=== PATIENT | female | born 1965 | race Caucasian/White ===

== ENCOUNTER 2020-07-23 14:27 | Outpatient (CLI) | payer OTHER, SELFPAY ==
--- NOTE | 2020-07-23 15:00 | MM_ITS ---
WS: [id number] BILATERAL DIGITAL SCREENING MAMMOGRAPHY WITH CAD CLINICAL INFORMATION: screening mammo HISTORY: Screening mammogram. No current complaints. COMPARISON: TECHNIQUE: Bilateral CC and MLO views. FINDINGS: The breasts are composed of heterogeneous fibroglandular density tissue, which can limit the detectio n of small underlying mass lesions. No suspicious mass, asymmetry, calcifications, or architectural d istortion. No evidence of malignancy. MM/[place] [id number] IMPRESSION: BI-RADS: 1-Negative FOLLOW UP: 1 Year Follow-up Recommend return to annual screening mammography.
== END 2020-07-23 14:28 | disposition home or self-care (01) ==
PROVIDERS: PCP Nurse Practitioner; Visit Provider Nurse Practitioner
DX: Z12.31 Encounter for screening mammogram for malignant neoplasm of breast (principal)
CPT/HCPCS: 77067

== ENCOUNTER → 2021-03-24 07:38 | Outpatient (BNVA) | payer SELFPAY | PROVIDERS: PCP Dermatology; Visit Provider Dermatology | DX: Z01.89 Encounter for other specified special examinations (principal) ==

== ENCOUNTER → 2021-09-15 07:56 | Outpatient (BNVA) | payer SELFPAY | PROVIDERS: PCP Dermatology; Visit Provider Dermatology | DX: Z01.89 Encounter for other specified special examinations (principal) | CPT/HCPCS: 99398 ==

== ENCOUNTER 2021-09-18 08:40 | Outpatient (CLI) | payer OTHER, SELFPAY ==
--- NOTE | 2021-09-18 09:00 | MM_ITS ---
WS: [id number] Bilateral screening digital mammogram, 09/18/2021 Clinical Data: Z12.31 - Encounter for screening mammogram for malignant ... Comparison: 07/23/2020, 08/31/2019, 08/18/2018, 08/12/2017, 08/12/2016, 07/25/2015, 09/06/2014, 2012, 05/08/2012, 05/05/2011, 06/18/2010, 05/16/2009. Findings: The breast parenchymal pattern shows fibroglandular tissue No spiculated masses or clustered calcific ations are seen. There are no secondary signs of carcinoma. MM/[place] [id number] Impression: 1. Negative bilateral mammogram unchanged. 2. Recommend annual screening mammograms. BIRADS: 1-Negative FOLLOW UP: 1 Year Follow-up The CAD security checker was used.
== END 2021-09-18 08:41 | disposition home or self-care (01) ==
LOC: RADSHAW 08:42
PROVIDERS: PCP Nurse Practitioner; Visit Provider Nurse Practitioner
DX: Z12.31 Encounter for screening mammogram for malignant neoplasm of breast (principal)
CPT/HCPCS: 77067

== ENCOUNTER 2021-11-20 07:25 | Outpatient (CLI) | payer OTHER, SELFPAY ==
--- NOTE | 2021-11-20 07:15 | US_ITS ---
WS: [id number] RIGHT UPPER QUADRANT ULTRASOUND HISTORY: R74.8 - Abnormal levels of other serum enzymes COMPARISON: None available. Liver: 14.9 cm in length. Liver is normal size. Very mild diffuse coarse echotexture. Surface of the liver is very mildly nodular. No mass or bile duct dilatation. Portal Vein: Normal hepatopetal flow with monophasic waveform. Gallbladder: Normally distended gallbladder with no stones or wall thickening. CBD: 0.4 cm Pancreas: Normal size and echogenicity. Right kidney: 9.4 cm in length. Normal size and echogenicity. No hydronephrosis or mass. Aorta and IVC: Unremarkable abdominal aorta and IVC. No ascites. US/US liver [id number] IMPRESSION: 1. Normal gallbladder. 2. Normal size liver with suspected mild early changes of cirrhosis. 3. No bile duct dilatation.
== END 2021-11-20 07:26 | disposition home or self-care (01) ==
LOC: RAD 07:32
PROVIDERS: PCP Nurse Practitioner; Visit Provider Nurse Practitioner
DX: R74.8 Abnormal levels of other serum enzymes (principal)
CPT/HCPCS: 76705

== ENCOUNTER → 2021-12-07 09:44 | Outpatient (BNVA) | payer OTHER, SELFPAY | PROVIDERS: PCP Nurse Practitioner; Visit Provider Nurse Practitioner | DX: Z20.822 Contact with and (suspected) exposure to COVID-19 (principal) | CPT/HCPCS: 87635 ==

== ENCOUNTER → 2022-03-16 07:43 | Outpatient (BNVA) | payer OTHER, SELFPAY | PROVIDERS: PCP Nurse Practitioner; Visit Provider Dermatology | DX: Z01.89 Encounter for other specified special examinations (principal) ==

== ENCOUNTER → 2022-03-18 13:44 | Outpatient (BNVA) | payer OTHER, SELFPAY | PROVIDERS: PCP Nurse Practitioner; Visit Provider Nurse Practitioner | DX: M17.11 Unilateral primary osteoarthritis, right knee (principal); M25.561 Pain in right knee | CPT/HCPCS: 73562 ==

== ENCOUNTER → 2022-06-15 08:17 | Outpatient (BNVA) | payer SELFPAY | PROVIDERS: PCP Nurse Practitioner; Visit Provider Dermatology | DX: Z01.89 Encounter for other specified special examinations (principal) ==

== ENCOUNTER → 2022-09-09 09:03 | Outpatient (BNVA) | payer OTHER, SELFPAY | PROVIDERS: PCP Nurse Practitioner; Visit Provider Nurse Practitioner | DX: E11.65 Type 2 diabetes mellitus with hyperglycemia (principal); Z79.4 Long term (current) use of insulin | CPT/HCPCS: 81000 ==

== ENCOUNTER → 2022-09-14 08:05 | Outpatient (BNVA) | payer SELFPAY | PROVIDERS: PCP Nurse Practitioner; Referring Provider Dermatology; Visit Provider Dermatology | DX: Z01.89 Encounter for other specified special examinations (principal) ==

== ENCOUNTER 2022-09-24 09:47 | Outpatient (CLI) | payer OTHER, SELFPAY ==
--- NOTE | 2022-09-24 10:05 | MM_ITS ---
WS: [id number] BILATERAL SCREENING DIGITAL TOMOSYNTHESIS MAMMOGRAM WITH CAD HISTORY: Z12.39 - Encounter for other screening for malignant neoplasm... COMPARISON: 09/18/2021, 07/23/2020 and 08/31/2019 Bilateral CC and MLO views with tomosynthesis and synthetic mammography submitted. Computer aided det ection analyzed. Breast composition: There are scattered areas of fibroglandular density. No suspicious masses, microc alcifications or architectural distortion. 6 mm stable nodule posterior to the LEFT nipple seen best on the MLO projection. MM/[place] [id number] IMPRESSION: BI-RADS: 2-Benign FOLLOW UP: 1 Year Follow-up
== END 2022-09-24 09:48 | disposition home or self-care (01) ==
LOC: RAD 09:48
PROVIDERS: PCP Nurse Practitioner; Visit Provider Nurse Practitioner
DX: Z12.31 Encounter for screening mammogram for malignant neoplasm of breast (principal)
CPT/HCPCS: 77063; 77067

== ENCOUNTER → 2022-12-14 07:53 | Outpatient (BNVA) | payer OTHER, SELFPAY | PROVIDERS: PCP Nurse Practitioner; Visit Provider Dermatology | DX: Z01.89 Encounter for other specified special examinations (principal) ==

== ENCOUNTER → 2023-03-08 14:58 | Outpatient (BNVA) | payer OTHER, SELFPAY | PROVIDERS: PCP Nurse Practitioner; Visit Provider Nurse Practitioner | DX: M25.531 Pain in right wrist (principal) | CPT/HCPCS: 73110 ==

== ENCOUNTER → 2023-03-15 09:47 | Outpatient (BNVA) | payer SELFPAY | PROVIDERS: PCP Nurse Practitioner; Visit Provider Nurse Practitioner | DX: Z01.89 Encounter for other specified special examinations (principal) ==

== ENCOUNTER → 2023-11-23 07:53 | Outpatient (BNVA) | payer OTHER, SELFPAY | PROVIDERS: PCP Nurse Practitioner; Visit Provider Nurse Practitioner | DX: Z13.6 Encounter for screening for cardiovascular disorders (principal) | CPT/HCPCS: 80061; 82947; 83036 ==

== ENCOUNTER → 2023-12-05 08:30 | Outpatient (BNVA) | payer OTHER, SELFPAY | PROVIDERS: PCP Nurse Practitioner; Visit Provider Nurse Practitioner | DX: M75.31 Calcific tendinitis of right shoulder (principal); M25.511 Pain in right shoulder | CPT/HCPCS: 73030 ==

== ENCOUNTER → 2024-10-15 08:29 | Outpatient (BNVA) | payer SELFPAY | PROVIDERS: PCP Nurse Practitioner; Visit Provider Nurse Practitioner | DX: R05.9 Cough, unspecified (principal) | CPT/HCPCS: 71046 ==

== ENCOUNTER → 2025-07-11 08:23 | Outpatient (BNVA) | payer SELFPAY | PROVIDERS: PCP Nurse Practitioner; Visit Provider Nurse Practitioner | DX: L98.8 Other specified disorders of the skin and subcutaneous tissue (principal) | CPT/HCPCS: 88305 ==

== ENCOUNTER 2025-07-19 17:35 | Inpatient (IN) | payer OTHER, SELFPAY ==
[2025-07-19] VITALS (18 sets, daily range): BP systolic 75–126; BP diastolic 46–78; PULSE 91–136; RESP 17–34; TEMP 36.9–38.6; O2SAT 92–94; BMI 27.1
--- NOTE | 2025-07-19 17:53 | XRR_ITS ---
PROCEDURE INFORMATION: Exam: XR Chest Exam date and time: 07/19/2025 5:54 PM Age: 60 years old Clinical indication: Fever and other: Nausea and vomiting; Additional info: Fever, n/v TECHNIQUE: Imaging protocol: Radiologic exam of the chest. Views: 1 view. COMPARISON: CR XR chest 2V* [id number] 10/15/2024 8:27 AM FINDINGS: Lungs: Unremarkable. No consolidation. Pleural spaces: Unremarkable. No pleural effusion. No pneumothorax. Heart/Mediastinum: Unremarkable. No cardiomegaly. Bones/joints: Unremarkable. XR/XR chest 1V portable [id number] IMPRESSION: No acute findings.
--- NOTE | 2025-07-19 18:11 | W.ED.NAVMDI ---
Documented by User: ALBERTINA Dye 07/19/25 20:36 HPI - Nausea/Vomiting/Diarrhea General: Chief complaint: Nausea/Vomiting/Diarrhea Stated complaint: Fever N/V Time Seen by Provider: 07/19/25 17:52 Source: patient Mode of arrival: ambulatory Limitations: no limitations History of Present Illness: This patient is a 60-year-old female who presents the emergency department for high fevers beginning yesterday. Reported temperature at home of 105, associated with nausea and vomiting. She arrives tachycardic, febrile, and hypotensive and is a sepsis alert. She has been complaining of fatigue, but has no chest pain or shortness of breath. No abdominal pain or diarrhea. No pertinent past medical history other than being diabetic. Also of note she has developed a rash diffusely, however it is not painful or itchy. Denies any new medications. Denies any urinary symptoms. No coughing. No reported sick contact exposure. No recent tick bites. MD elicited complaint: nausea, vomiting and other (Fever) Onset (ago): day(s) Associated nausea: Yes Associated abdominal pain: No Associated symtoms: Reports fatigue, malaise and nausea; Denies change in vision, chest pain, dysuria, headache(s) or palpitations Related Data Home Medications ?Medication ?Instructions ?Recorded ?Confirmed aspirin 325 mg tablet 325 mg PO DAILY 02/01/22 07/10/25 magnesium 250 mg tablet 250 mg PO BID 03/17/22 07/10/25 valerian 100 mg tablet 100 mg PO DAILY 04/24/25 07/10/25 Previous Rx's ?Medication ?Instructions ?Recorded mupirocin 2 % topical ointment 1 applic topical BID #22 grams 01/27/23 albuterol sulfate 2.5 mg/3 mL 2.5 mg (3 mL) inhalation Q4H PRN 10/15/24 (0.083 %) solution for nebulization shortness of breath or wheezing #75 mL nebulizers #1 ea 10/15/24 metformin 500 mg tablet,extended 500 mg PO DAILY #90 tabs 02/14/25 release 24 hr tirzepatide 5 mg/0.5 mL 5 mg (0.5 mL) SUBCUT .weekly #2 mL 02/14/25 subcutaneous pen injector (Mounjaro) tizanidine 4 mg tablet (Zanaflex) 2 mg (1/2 x 4 mg) PO BID PRN 05/14/25 muscle spasticity #90 tabs Allergies Allergy/AdvReac Type Severity Reaction Status Date / Time No Known Allergies Allergy Verified 07/10/25 15:41 Review of Systems General: Reports: 10 or more systems reviewed and unremarkable except in HPI and below Const: Reports: fever(s), fatigue and malaise; Denies: chills Eyes: Denies: change in vision ENMT: Denies: throat pain, ear or mastoid pain or nasal discharge Card: Denies: chest pain, palpitations, swelling of feet/ankles or lightheadedness Resp: Denies: dyspnea, productive cough or wheezing GI: Reports: nausea and vomiting; Denies: abdominal pain or diarrhea : Denies: flank pain, difficulty voiding, dysuria or urinary frequency Musc: Denies: neck pain, back pain or joint pain Skin/Breast: Denies: rash Neuro: Denies: headache(s), numbness in extremities or weakness in extremities PFSH ED PFSH: Medical History Type 2 diabetes mellitus with hyperglycemia, without long-term current use of insulin BMI 29.0-29.9,adult Surgical History No pertinent past surgical history Family History Mother Diabetes Hypertension Stroke Sister Diabetes Brother Diabetes Father Dementia Hypertension Denies family history of Cancer Social History Smoking and tobacco/nicotine status: never used tobacco/nicotine Second hand smoke exposure: No Alcohol intake: never Substance/Drug Use: never Adopted: No Caregiver/support person: No Lives independently: Yes Household members: family Housing: House Marital status: Single Number of children: 0 Number of grandchildren: 0 service: No Current occupational status: employed Current occupation: [employer] Current occupational exposures/hazards: No Pets and animals: Yes Pets & animals: farm animals Sexually active: No Do you think of yourself as: Straight/Heterosexual Current gender identity: Female Physical Exam Const: COMMON NORMALS: patient oriented x3 and no limitations GENERAL APPEARANCE: cooperative ORIENTATION/CONSCIOUSNESS: Yes awake, Yes oriented to person, Yes oriented to place and Yes oriented to time OTHER: Lethargic, ill-appearing HENMT: COMMON NORMALS: normocephalic, atraumatic, hearing grossly normal bilaterally and moist oral mucous membranes HEAD & SCALP: normocephalic and atraumatic Eye: COMMON NORMALS: Equal, round and reactive pupils present, EOMs intact bilaterally and conjunctivae normal CONJUNCTIVA: Yes conjunctivae normal PUPIL: Yes Equal, round and reactive pupils present Neck/C-Spine: COMMON NORMALS: full ROM, supple and no JVD Resp: COMMON NORMALS: normal respiratory effort, No retractions, No use of accessory muscles and clear to auscultation bilaterally AUSCULTATION: clear to auscultation bilaterally OTHER: No respiratory distress Cardio: COMMON NORMALS: no JVD, regular rhythm, No clicks present (Cardio), No murmurs present (Cardio) and No rub (Cardio) RATE: tachycardic RHYTHM: regular rhythm GI: COMMON NORMALS: Normal to inspection, nondistended, normoactive bowel sounds present, Soft to palpation and non-tender AUSCULTATION: Yes normoactive bowel sounds PALPATION: Yes Soft to palpation RECTAL EXAM: deferred Extremity: COMMON NORMALS: normal to inspection, full ROM and capillary refill normal Neuro: COMMON NORMALS: patient oriented x3, moves all extremities, no focal motor deficits and no sensory deficits noted SENSORIUM/ORIENTATION: Yes oriented to person, Yes oriented to place and Yes oriented to time Skin: NARRATIVE SKIN EXAM: Mild diffuse erythematous rash Course Vital Signs: Vital signs: Vital Signs Temperature 98.4 F 07/19/25 19:00 Pulse Rate 108 H 07/19/25 21:42 Respiratory Rate 17 07/19/25 20:30 Blood Pressure 91/51 07/19/25 21:42 Pulse Oximetry 92 07/19/25 21:42 Oxygen Delivery Me thod Room Air 07/19/25 21:35 MDM - Nausea/Vomiting/Diarrhea Medical Decision Making This patient presented to the emergency department for septic alert, hypotensive, tachycardic and febrile. At home was feverish with chills, and associated nausea vomiting that seemingly started yesterday, where was noted that Tuesday she was feeling without complaint. She has a history of type 2 diabetes under control. She had no new urinary symptoms to report. She is started on septic fluid bolus and blood cultures obtained prior to administration of IV antibiotics. Mild leukocytosis, elevation in CRP and procalcitonin. Her x-ray is negative for any obvious focal infiltrate. COVID/viral swab negative. Her urinalysis shows signs of significant urinary tract infection, this is presenting as likely urosepsis. On exam she also had diffuse erythematous rash that has been worsening here in the ED, this was present prior to administration of Vanco. Blood pressure has remained soft despite IV fluids, I spoke to hospitalist, Dr. Gandara, who is excepted patient to ICU, the patient will also receive CT abdomen pelvis to rule out any obstructive uropathy or significant pyelonephritis. Patient has had no complaints of abdominal pain or back pain. Discussed patient's case in brief with Dr. Borrero here in the ED who will put in admit orders. Informed family of plan for admission, they agree and all other questions and concerns addressed. Lab Data 07/19/25 18:02 07/19/25 18:02 Radiology Impressions Chest X-Ray 07/19/25 17:53 IMPRESSION: No acute findings. Abdomen/Pelvis CT 07/19/25 20:13 IMPRESSION: 1. Mild mucosal thickening of the distal esophagus which is nonspecific but can be seen in esophagitis. 2. Moderate thickening of the gastric antrum which is nonspecific but can be seen in gastritis. Gastroenterology consultation should be considered. 3. Right adrenal lesion incompletely characterized on this examination measures 11 mm. To confirm adrenal adenoma, follow-up adrenal protocol CT or MRI is recommended. 4. Heterogeneously enhancing right adnexal cyst measures 2.0 cm series 5, image 78. Given the patient's age further evaluation with pelvic MRI or ultrasound could be considered. 5. Scattered bilateral pulmonary nodules measuring up to 5 mm in the left lower lobe series 5, image 5. Follow-up as per Fleischner criteria. Laboratory Results WBC 11.61 10^3/uL (3.29-11.43) H 07/19/25 18:02 RBC 5.39 10^6/uL (3.85-5.65) 07/19/25 18:02 Hgb 15.80 g/dL (11.27-16.99) 07/19/25 18:02 Hct 46.4 % (36-47) 07/19/25 18:02 MCV 86.1 fl (85-98) 07/19/25 18:02 MCH 29.3 pg (27-33) 07/19/25 18:02 MCHC 34.1 g/dL (30-55) 07/19/25 18:02 RDW 12.9 % (12.1-15.1) 07/19/25 18:02 Plt Count 122 10^3/cmm (157-399) L 07/19/25 18:02 MPV 9.5 fL (7.4-10.4) 07/19/25 18:02 Neut % (Auto) 93.9 % 07/19/25 18:02 Lymph % (Auto) 2.2 % 07/19/25 18:02 [place] % (Auto) 1.1 % 07/19/25 18:02 Eos % (Auto) 0.8 % 07/19/25 18:02 Baso % (Auto) 0.2 % 07/19/25 18:02 Neut # (Auto) 10.90 10^3/uL (1.8-7.7) H 07/19/25 18:02 Lymph # (Auto) 0.3 10^3/uL (0.8-4.8) L 07/19/25 18:02 [place] # (Auto) 0.1 10^3/uL (0.2-0.9) L 07/19/25 18:02 Eos # (Auto) 0.1 10^3/uL (0.0-0.8) 07/19/25 18:02 Baso # (Auto) 0.0 10^3/uL (0.0-0.1) 07/19/25 18:02 Nucleated RBC % (auto) 0 % 07/19/25 18:02 Nucleated RBCs # 0.0 /100WBC 07/19/25 18:02 PT 16.50 SECONDS (12.1-14.9) H 07/19/25 18:02 INR 1.25 (0.8-1.2) H 07/19/25 18:02 APTT 27.4 SECONDS (23.9-36.7) 07/19/25 18:02 Sodium 136 mmol/L (136-145) 07/19/25 18:02 Potassium 3.4 mmol/L (3.5-5.1) L 07/19/25 18:02 Chloride 98 mmol/L (98-107) 07/19/25 18:02 Carbon Dioxide 18 mmol/L (22-29) L 07/19/25 18:02 Anion Gap 23.4 (5-19) H 07/19/25 18:02 BUN 18 mg/dL (8-23) 07/19/25 18:02 Creatinine 1.2 mg/dL (0.5-0.9) H 07/19/25 18:02 GFR Calculation 45.7 mL/min (90-130) L 07/19/25 18: Glucose 184 mg/dL (65-115) H 07/19/25 18:02 Calculated Osmolality 289 mOsm/kg (285-295) 07/19/25 18:02 Lactic Acid Cancelled 07/19/25 18: Lactate 1.6 mmol/L (0.5-2.2) 07/19/25 19:33 Calcium 9.2 mg/dL (8.5-10.5) 07/19/25 18:02 Total Bilirubin 0.7 mg/dL (0.15-1.2) 07/19/25 18:02 AST 41 U/L (0-32) H 07/19/25 18:02 ALT 36 U/L (0-33) H 07/19/25 18:02 Alkaline Phosphatase 85 U/L (35-105) 07/19/25 18:02 C-Reactive Protein 187.0 mg/L (0.0-4.9) H 07/19/25 18:02 Total Protein 7.9 g/dL (6.6-8.7) 07/19/25 18:02 Albumin 4.1 g/dL (3.5-5.2) 07/19/25 18:02 Globulin 3.8 g/dL (1.3-4.6) 07/19/25 18:02 Procalcitonin 7.90 ng/mL (0-0.5) H 07/19/25 18:02 Urine Color Dark yellow (Yellow) A 07/19/25 18:58 Urine Appearance Turbid (CLEAR) A 07/19/25 18:58 Urine pH 5.5 (5-7) 07/19/25 18:58 Ur Specific [place] 1.034 (1.005-1.030) H 07/19/25 18:58 Urine Protein 2+ (Negative) A 07/19/25 18:58 Urine Glucose (UA) Negative (Normal) 07/19/25 18:58 Urine Ketones 4+ (Negative) 07/19/25 18:58 Urine Blood 1+ (Negative) A 07/19/25 18:58 Urine Nitrate Negative (Negative) 07/19/25 18:58 Urine Bilirubin 1+ (Negative) H 07/19/25 18:58 Urine Urobilinogen 1.0 mg/dL (Negative) 07/19/25 18:58 Ur Leukocyte Esterase 3+ (Negative) A 07/19/25 18:58 Urine RBC 11-20 /hpf (0-2) H 07/19/25 18:58 Urine WBC >100 /hpf (0-5) H 07/19/25 18:58 Ur Squamous Epith Cells 6-10 /hpf (0-5) 07/19/25 18:58 Amorphous Sediment Not Reportable 07/19/25 18:58 Urine Bacteria 3+ /hpf (NONE) H 07/19/25 18:58 Hyaline Casts 36.83 /lpf 07/19/25 18:58 Urine Mucus 2+ /hpf 07/19/25 18:58 Serum Ketones Negative (Negative) 07/19/25 18:02 Influenza A (PCR) Negative (Negative) 07/19/25 18:35 Influenza Type B (PCR) Negative (Negative) 07/19/25 18:35 RSV (PCR) Negative (Negative) 07/19/25 18:35 SARS-CoV-2 (PCR) Negative (Negative) 07/19/25 18:35 All radiology interpretation(s) finalized by discharge Discharge Plan Discharge Patient Disposition: Admitted As Inpatient Admit Provider: Jessica Gandara Clinical Impression: Sepsis, UTI (urinary tract infection) Condition: Stable Coding Level of Care Code ED Process Improvement Specialist for Radhag Fwd Documented by User: Chelsi Neff MD 07/19/25 22:16 HPI - Nausea/Vomiting/Diarrhea General: Chief complaint: Nausea/Vomiting/Diarrhea Stated complaint: Fever N/V Time Seen by Provider: 07/19/25 17:52 Related Data Home Medications ?Medication ?Instructions ?Recorded ?Confirmed aspirin 325 mg tablet 325 mg PO DAILY 02/01/22 07/10/25 magnesium 250 mg tablet 250 mg PO BID 03/17/22 07/10/25 valerian 100 mg tablet 100 mg PO DAILY 04/24/25 07/10/25 Previous Rx's ?Medication ?Instructions ?Recorded mupirocin 2 % topical ointment 1 applic topical BID #22 grams 01/27/23 albuterol sulfate 2.5 mg/3 mL 2.5 mg (3 mL) inhalation Q4H PRN 10/15/24 (0.083 %) solution for nebulization shortness of breath or wheezing #75 mL nebulizers #1 ea 10/15/24 metformin 500 mg tablet,extended 500 mg PO DAILY #90 tabs 02/14/25 release 24 hr tirzepatide 5 mg/0.5 mL 5 mg (0.5 mL) SUBCUT .weekly #2 mL 02/14/25 subcutaneous pen injector (Mounjaro) tizanidine 4 mg tablet (Zanaflex) 2 mg (1/2 x 4 mg) PO BID PRN 05/14/25 muscle spasticity #90 tabs Allergies Allergy/AdvReac Type Severity Reaction Status Date / Time No Known Allergies Allergy Verified 07/10/25 15:41 PFSH ED PFSH: Medical History Type 2 diabetes mellitus with hyperglycemia, without long-term current use of insulin BMI 29.0-29.9,adult Surgical History No pertinent past surgical history Family History Mother Diabetes Hypertension Stroke Sister Diabetes Brother Diabetes Father Dementia Hypertension Denies family history of Cancer Social History Smoking and tobacco/nicotine status: never used tobacco/nicotine Second hand smoke exposure: No Alcohol intake: never Substance/Drug Use: never Adopted: No Caregiver/support person: No Lives independently: Yes Household members: family Housing: House Marital status: Single Number of children: 0 Number of grandchildren: 0 service: No Current occupational status: employed Current occupation: [employer] Current occupational exposures/hazards: No Pets and animals: Yes Pets & animals: farm animals Sexually active: No Do you think of yourself as: Straight/Heterosexual Current gender identity: Female Course Vital Signs: Vital signs: Vital Signs Temperature 98.4 F 07/19/25 19:00 Pulse Rate 108 H 07/19/25 21:42 Respiratory Rate 17 07/19/25 20:30 Blood Pressure 91/51 07/19/25 21:42 Pulse Oximetry 92 07/19/25 21:42 Oxygen Delivery Me thod Room Air 07/19/25 21:35 MDM - Nausea/Vomiting/Diarrhea Medical Decision Making This patient presented to the emergency department for septic alert, hypotensive, tachycardic and febrile. At home was feverish with chills, and associated nausea vomiting that seemingly started yesterday, where was noted that Tuesday she was feeling without complaint. She has a history of type 2 diabetes under control. She had no new urinary symptoms to report. She is started on septic fluid bolus and blood cultures obtained prior to administration of IV antibiotics. Mild leukocytosis, elevation in CRP and procalcitonin. Her x-ray is negative for any obvious focal infiltrate. COVID/viral swab negative. Her urinalysis shows signs of significant urinary tract infection, this is presenting as likely urosepsis. On exam she also had diffuse erythematous rash that has been worsening here in the ED, this was present prior to administration of Vanco. Blood pressure has remained soft despite IV fluids, I spoke to hospitalist, Dr. Gandara, who is excepted patient to ICU, the patient will also receive CT abdomen pelvis to rule out any obstructive uropathy or significant pyelonephritis. Patient has had no complaints of abdominal pain or back pain. Discussed patient's case in brief with Dr. Borrero here in the ED who will put in admit orders. Informed family of plan for admission, they agree and all other questions and concerns addressed. I saw patient with above midlevel agree with his history and physical. Patient presented here with sepsis likely from urinary tract infection. She is given sepsis bolus along with IV antibiotics patient is admitted to ICU to the hospitalist. Imaging here showed no acute findings. Lab Data 07/19/25 18:02 07/19/25 18:02 Radiology Impressions Chest X-Ray 07/19/25 17:53 IMPRESSION: No acute findings. Abdomen/Pelvis CT 07/19/25 20:13 IMPRESSION: 1. Mild mucosal thickening of the distal esophagus which is nonspecific but can be seen in esophagitis. 2. Moderate thickening of the gastric antrum which is nonspecific but can be seen in gastritis. Gastroenterology consultation should be considered. 3. Right adrenal lesion incompletely characterized on this examination measures 11 mm. To confirm adrenal adenoma, follow-up adrenal protocol CT or MRI is recommended. 4. Heterogeneously enhancing right adnexal cyst measures 2.0 cm series 5, image 78. Given the patient's age further evaluation with pelvic MRI or ultrasound could be considered. 5. Scattered bilateral pulmonary nodules measuring up to 5 mm in the left lower lobe series 5, image 5. Follow-up as per Fleischner criteria. Laboratory Results WBC 11.61 10^3/uL (3.29-11.43) H 07/19/25 18:02 RBC 5.39 10^6/uL (3.85-5.65) 07/19/25 18:02 Hgb 15.80 g/dL (11.27-16.99) 07/19/25 18:02 Hct 46.4 % (36-47) 07/19/25 18:02 MCV 86.1 fl (85-98) 07/19/25 18:02 MCH 29.3 pg (27-33) 07/19/25 18:02 MCHC 34.1 g/dL (30-55) 07/19/25 18:02 RDW 12.9 % (12.1-15.1) 07/19/25 18:02 Plt Count 122 10^3/cmm (157-399) L 07/19/25 18:02 MPV 9.5 fL (7.4-10.4) 07/19/25 18:02 Neut % (Auto) 93.9 % 07/19/25 18:02 Lymph % (Auto) 2.2 % 07/19/25 18:02 [place] % (Auto) 1.1 % 07/19/25 18:02 Eos % (Auto) 0.8 % 07/19/25 18:02 Baso % (Auto) 0.2 % 07/19/25 18:02 Neut # (Auto) 10.90 10^3/uL (1.8-7.7) H 07/19/25 18:02 Lymph # (Auto) 0.3 10^3/uL (0.8-4.8) L 07/19/25 18:02 [place] # (Auto) 0.1 10^3/uL (0.2-0.9) L 07/19/25 18:02 Eos # (Auto) 0.1 10^3/uL (0.0-0.8) 07/19/25 18:02 Baso # (Auto) 0.0 10^3/uL (0.0-0.1) 07/19/25 18:02 Nucleated RBC % (auto) 0 % 07/19/25 18:02 Nucleated RBCs # 0.0 /100WBC 07/19/25 18:02 PT 16.50 SECONDS (12.1-14.9) H 07/19/25 18:02 INR 1.25 (0.8-1.2) H 07/19/25 18:02 APTT 27.4 SECONDS (23.9-36.7) 07/19/25 18:02 Sodium 136 mmol/L (136-145) 07/19/25 18:02 Potassium 3.4 mmol/L (3.5-5.1) L 07/19/25 18:02 Chloride 98 mmol/L (98-107) 07/19/25 18:02 Carbon Dioxide 18 mmol/L (22-29) L 07/19/25 18:02 Anion Gap 23.4 (5-19) H 07/19/25 18:02 BUN 18 mg/dL (8-23) 07/19/25 18:02 Creatinine 1.2 mg/dL (0.5-0.9) H 07/19/25 18:02 GFR Calculation 45.7 mL/min (90-130) L 07/19/25 18:02 Glucose 184 mg/dL (65-115) H 07/19/25 18:02 Calculated Osmolality 289 mOsm/kg (285-295) 07/19/25 18:02 Lactic Acid Cancelled 07/19/25 18:02 Lactate 1.6 mmol/L (0.5-2.2) 07/19/25 19:33 Calcium 9.2 mg/dL (8.5-10.5) 07/19/25 18:02 Total Bilirubin 0.7 mg/dL (0.15-1.2) 07/19/25 18:02 AST 41 U/L (0-32) H 07/19/25 18:02 ALT 36 U/L (0-33) H 07/19/25 18:02 Alkaline Phosphatase 85 U/L (35-105) 07/19/25 18:02 C-Reactive Protein 187.0 mg/L (0.0-4.9) H 07/19/25 18:02 Total Protein 7.9 g/dL (6.6-8.7) 07/19/25 18:02 Albumin 4.1 g/dL (3.5-5.2) 07/19/25 18:02 Globulin 3.8 g/dL (1.3-4.6) 07/19/25 18:02 Procalcitonin 7.90 ng/mL (0-0.5) H 07/19/25 18:02 Urine Color Dark yellow (Yellow) A 07/19/25 18:58 Urine Appearance Turbid (CLEAR) A 07/19/25 18:58 Urine pH 5.5 (5-7) 07/19/25 18:58 Ur Specific [place] 1.034 (1.005-1.030) H 07/19/25 18:58 Urine Protein 2+ (Negative) A 07/19/25 18:58 Urine Glucose (UA) Negative (Normal) 07/19/25 18:58 Urine Ketones 4+ (Negative) 07/19/25 18:58 Urine Blood 1+ (Negative) A 07/19/25 18:58 Urine Nitrate Negative (Negative) 07/19/25 18:58 Urine Bilirubin 1+ (Negative) H 07/19/25 18:58 Urine Urobilinogen 1.0 mg/dL (Negative) 07/19/25 18:58 Ur Leukocyte Esterase 3+ (Negative) A 07/19/25 18:58 Urine RBC 11-20 /hpf (0-2) H 07/19/25 18:58 Urine WBC >100 /hpf (0-5) H 07/19/25 18:58 Ur Squamous Epith Cells 6-10 /hpf (0-5) 07/19/25 18:58 Amorphous Sediment Not Reportable 07/19/25 18:58 Urine Bacteria 3+ /hpf (NONE) H 07/19/25 18:58 Hyaline Casts 36.83 /lpf 07/19/25 18:58 Urine Mucus 2+ /hpf 07/19/25 18:58 Serum Ketones Negative (Negative) 07/19/25 18:02 Influenza A (PCR) Negative (Negative) 07/19/25 18:35 Influenza Type B (PCR) Negative (Negative) 07/19/25 18:35 RSV (PCR) Negative (Negative) 07/19/25 18:35 SARS-CoV-2 (PCR) Negative (Negative) 07/19/25 18:35 Critical Care Time Critical Care Time: Critical Care Time: Yes Total Critical Care Time: 40 Attestation: The high probability of a clinically significant, sudden or life threatening deterioration of the patient's gu system(s) required my full and direct attention, intervention and personal management. The critical care time is as shown. This time is in addition to time spent performing any reported procedures but includes the following: [x] Data and vital sign review and interpretation [x] Patient assessment, examination and intervention [x] Documentation [x] Medication orders and management Discharge Plan Discharge Patient Disposition: Admitted As Inpatient Admit Provider: Jessica Gandara Clinical Impression: Sepsis, UTI (urinary tract infection) Condition: Stable Coding Level of Care Code ED Process Improvement Specialist for Catherine Pan
--- NOTE | 2025-07-19 18:12 | ECG_ITS ---
[facility] Test Date: 2025-07-19 Pat Name: Lissa Warren Department: Room: Gender: Female [employer]ler: : 1965 Requested By: Raffi Lim Order Number: [id number] Wyatt MD: Kp Bishop M.D. Measurements Intervals [place] Rate: 123 P: 55 NM: 139 QRS: 83 QRSD: 90 T: 57 QT: 336 QTc: 481 Interpretive Statements SINUS TACHYCARDIA No previous ECG available for comparison Electronically Signed On 07-20-2025 12:06:24 CDT by Kp Bishop M.D. [id number]
[2025-07-19 18:32] LABS: Hematocrit 46.4 % (36-47); Hemoglobin 15.80 g/dL (11.27-16.99); Mean Corpuscular HGB Conc 34.1 g/dL (30-55); Mean Corpuscular Hemoglobin 29.3 pg (27-33); Mean Corpuscular Volume 86.1 fl (85-98); Nucleated Red Blood Cells % 0 %; Platelet Count 122 10^3/cmm (157-399); Red Blood Count 5.39 10^6/uL (3.85-5.65); White Blood Count 11.61 10^3/uL (3.29-11.43)
[2025-07-19 18:59] LABS: Alanine Aminotransferase 36 U/L (0-33); Albumin Level 4.1 g/dL (3.5-5.2); Alkaline Phosphatase 85 U/L (35-105); Anion Gap 23.4 (5-19); Aspartate Amino Transferase 41 U/L (0-32); Blood Urea Nitrogen 18 mg/dL (8-23); Calcium 9.2 mg/dL (8.5-10.5); Carbon Dioxide 18 mmol/L (22-29); Chloride 98 mmol/L (98-107); Globulin 3.8 g/dL (1.3-4.6); Glucose 184 mg/dL (65-115); Osmolality Calculated 289 mOsm/kg (285-295); Potassium 3.4 mmol/L (3.5-5.1); Sodium 136 mmol/L (136-145); Total Protein 7.9 g/dL (6.6-8.7)
[2025-07-19 19:04] LABS: Creatinine Clr Calc Pharmacy 51.0607; Ketone (Acetest) Serum Negative (Negative)
[2025-07-19 19:05] LABS: Procalcitonin 7.90 ng/mL (0-0.5)
[2025-07-19 19:27] LABS: Glucose Urine UA Negative (Normal); Nitrate Urine Negative (Negative)
[2025-07-19 19:33] LABS: Add Urine Microscopic? YES
[2025-07-19 19:36] LABS: Respiratory Syncytial Virus Ce NEGATIVE (Negative); SARS-CoV-2 PCR NEGATIVE (Negative)
[2025-07-19 19:39] LABS: INR 1.25 (0.8-1.2); Prothrombin Time 16.50 SECONDS (12.1-14.9)
[2025-07-19 19:40] LABS: Partial Thromboplastin Time 27.4 SECONDS (23.9-36.7)
[2025-07-19 19:59] LABS: Specific Gravity, Urine 1.034 (1.005-1.030); UA Slide Review UA Slide Review Perf
[2025-07-19] MEDS: piperacillin-tazobactam 3.375 GM in sodium chloride 0.9% (plus) 50 ML IV (20:07)
--- NOTE | 2025-07-19 20:13 | CTR_ITS ---
PROCEDURE INFORMATION: Exam: CT Abdomen And Pelvis With Contrast Exam date and time: 07/19/2025 9:03 PM Age: 60 years old Clinical indication: Abnormal findings; Abnormal lab test; Elevated liver enzymes and elevated wbc; Fever and nausea and vomiting; High grade fever with n/v. Leukocytosis with elevated lfts. ; Additional info: Fever, n/v TECHNIQUE: Imaging protocol: Computed tomography of the abdomen and pelvis with contrast. Radiation optimization: All CT scans at this facility use at least one of these dose optimization techniques: automated exposure control; mA and/or kV adjustment per patient size (includes targeted exams where dose is matched to clinical indication); or iterative reconstruction. Contrast material: OMNI 350; Contrast volume: 100 ml; Contrast route: INTRAVENOUS (IV); COMPARISON: [place] liver [id number] 11/20/2021 7:41 AM RADIATION DOSE METRICS: Total DLP (mGy-cm): 559.64 FINDINGS: Lungs: Scattered bilateral pulmonary nodules measuring up to 5 mm in the left lower lobe series 5, image 5. Follow-up as per Fleischner criteria. Esophagus: Mild mucosal thickening of the distal esophagus which is nonspecific but can be seen in esophagitis. Liver: No suspicious liver lesion. Gallbladder and biliary ducts: No gallbladder wall thickening, pericholecystic fluid or pericholecystic fat stranding to suggest acute cholecystitis. No cholelithiasis. Normal caliber of the common bile duct. Pancreas: Normal. No ductal dilation. Spleen: Scattered calcified foci in the spleen which is nonspecific but can be related to prior granulomatous infection. Adrenal glands: Right adrenal lesion incompletely characterized on this examination measures 11 mm. To confirm adrenal adenoma, follow-up adrenal protocol CT or MRI is recommended. Kidneys and ureters: No hydronephrosis or hydroureter on either side. Stomach and bowel: Moderate thickening of the gastric antrum which is nonspecific but can be seen in gastritis. Gastroenterology consultation should be considered. Appendix: No evidence of appendicitis. Intraperitoneal space: No pelvic free fluid. Scattered subcentimeter upper abdominal lymph nodes likely reactive. Vasculature: Unremarkable. No abdominal aortic aneurysm. Lymph nodes: See Intraperitoneal space finding. Urinary bladder: Unremarkable as visualized. Reproductive: Heterogeneously enhancing right adnexal cyst measures 2.0 cm series 5, image 78. Given the patient's age further evaluation with pelvic MRI or ultrasound could be considered. Bones/joints: Unremarkable. No acute fracture. Soft tissues: Unremarkable. CT/CT abdomen pelvis w con* [id number] IMPRESSION: 1. Mild mucosal thickening of the distal esophagus which is nonspecific but can be seen in esophagitis. 2. Moderate thickening of the gastric antrum which is nonspecific but can be seen in gastritis. Gastroenterology consultation should be considered. 3. Right adrenal lesion incompletely characterized on this examination measures 11 mm. To confirm adrenal adenoma, follow-up adrenal protocol CT or MRI is recommended. 4. Heterogeneously enhancing right adnexal cyst measures 2.0 cm series 5, image 78. Given the patient's age further evaluation with pelvic MRI or ultrasound could be considered. 5. Scattered bilateral pulmonary nodules measuring up to 5 mm in the left lower lobe series 5, image 5. Follow-up as per Fleischner criteria.
[2025-07-19 20:19] LABS: Lactate (Lactic Acid level) 1.6 mmol/L (0.5-2.2)
[2025-07-19] MEDS: iohexol 350 mg/mL 500 mL Btl (per mL) IV (21:05)
[2025-07-19] MEDS: heparin 5,000 unit/mL INJ 1 mL 5000 UNIT SUBCUT (21:59)
[2025-07-19 22:17] LABS: ABG PCO2 33.1 mmHg (35-45); ABG PH Result 7.39 (7.35-7.45); Alveolar-Arterial Oxygen Gradi 5.4 mmHg (5-10); Arterial Blood Gas Hematocrit 43.5 % (37-47); Blood Gas Allen Test Pos; Blood Gas Sample Site Radial, right; Blood Gas Sample Type Arterial; Carboxyhemoglobin 0.8 %THgb (0.4-20.1); Glucose Level-ABG 175.0 mg/dL (70-115); HCO3 ABG 19.9 mmol/L (22-26); Ionized Calcium Level - ABG 1.1 mmol/L (1.1-1.4); Methemoglobin 0.9 % (0.4-1.5); Oxygen Saturation ABG 93.7; PO2 ABG 65.6 mmHg (80.0-100.0); Potassium Level - ABG 3.4 mmol/L (3.5-5.0); Sodium Level - ABG 133.0 mmol/L (131-143)
[2025-07-19 22:19] LABS: Blood Gas Operator Identificat JDB; PO2 FiO2 Ratio Arterial Blood 312
[2025-07-19 23:18] LABS: Lactic Sepsis W/Reflex 1.9 mmol/L (0.5-2.2)
[2025-07-20] VITALS (64 sets, daily range): BP systolic 82–127; BP diastolic 48–81; PULSE 65–95; RESP 17–37; TEMP 36.7–37.1; O2SAT 90–97; BMI 29.1
--- NOTE | 2025-07-20 02:28 | PM.HP ---
Providers/Chief Complaint Admitting Physician: Jessica Gandara MD Primary Care Provider: DIMPLE Finley-Janet Chief Complaint: Fever N/V History of Present Illness As per the previous notes and the patient: Lissa Warren is a 60 year old female with past medical history of diabetes came with fever and chills from last 1 to 2 days and later and was found to have skin redness from her torso with mild rash but no desquamation and no mouth ulcers. The patient did not take any antibiotics or any NSAIDs.. There was no history of URTI or UTI symptoms associated with it. No lower leg swellings no chest pain or chest pressure like symptoms. No history of allergies reported. No history of bug bite or mosquito bites. No history of recent travels or sick contact. The patient did not take her flu shot. No history of alcohol intake or any other drugs reported. Medications/Allergies Home Medications ?Medication ?Instructions ?Recorded ?Confirmed ?Last Taken ?Type aspirin 325 mg tablet 325 mg PO DAILY 02/01/22 07/10/25 Unknown History magnesium 250 mg tablet 250 mg PO BID 03/17/22 07/10/25 Unknown History mupirocin 2 % topical ointment 1 applic topical BID #22 grams 01/27/23 07/10/25 Unknown Rx albuterol sulfate 2.5 mg/3 mL 2.5 mg (3 mL) inhalation Q4H PRN 10/15/24 07/10/25 Unknown Rx (0.083 %) solution for nebulization shortness of breath or wheezing #75 mL nebulizers #1 ea 10/15/24 07/10/25 Unknown Rx metformin 500 mg tablet,extended 500 mg PO DAILY #90 tabs 02/14/25 07/10/25 Unknown Rx release 24 hr tirzepatide 5 mg/0.5 mL 5 mg (0.5 mL) SUBCUT .weekly #2 mL 02/14/25 07/10/25 Unknown Rx subcutaneous pen injector (Mounjaro) valerian 100 mg tablet 100 mg PO DAILY 04/24/25 07/10/25 Unknown History tizanidine 4 mg tablet (Zanaflex) 2 mg (1/2 x 4 mg) PO BID PRN 05/14/25 07/10/25 Unknown Rx muscle spasticity #90 tabs Allergies Allergy/AdvReac Type Severity Reaction Status Date / Time No Known Allergies Allergy Verified 07/10/25 15:41 PFSH Acute PFSH: Medical History (Updated 07/20/25 @ 02:44 by Jessica Gandara MD) Type 2 diabetes mellitus with hyperglycemia, without long-term current use of insulin BMI 29.0-29.9,adult Surgical History No pertinent past surgical history Family History Mother Diabetes Hypertension Stroke Sister Diabetes Brother Diabetes Father Dementia Hypertension Denies family history of Cancer Social History Smoking and tobacco/nicotine status: never used tobacco/nicotine Second hand smoke exposure: No Alcohol intake: never Substance/Drug Use: never Adopted: No Caregiver/support person: No Lives independently: Yes Household members: family Housing: House Marital status: Single Number of children: 0 Number of grandchildren: 0 service: No Current occupational status: employed Current occupation: [employer] Current occupational exposures/hazards: No Pets and animals: Yes Pets & animals: farm animals Sexually active: No Do you think of yourself as: Straight/Heterosexual Current gender identity: Female Vitals/I&O/Wt Last Vital Signs Temp 98.8 F 07/20/25 01:00 Pulse 95 07/20/25 01:00 Resp 20 H 07/20/25 01:00 BP 99/56 07/20/25 01:00 Pulse Ox 94 07/20/25 01:00 O2 Del Method Room Air 07/20/25 01:00 07/19/25 07/19/25 07/20/25 14:59 22:59 06:59 Intake Total 2608.88 / 2608.88 2765 / 5373.88 Balance 2608.88 / 2608.88 2765 / 5373.88 Weight last 48 hrs Weight 76.43 kg Weight 75.296 kg Physical Exam Narrative: General: Alert and oriented, lying comfortably with skin redness on her torso and skin blanching positive with mild rash but no desquamation and no mouth ulcers HEENT: Normocephalic, atraumatic, grossly unremarkable exam Cardio: Uriel tachycardia, normal S1-S2 without any murmurs, rubs, or gallops and JVD normal Respiratory: normal vascular breathing on auscultation without any wheezes, stridor, rhonchi GI: Abdomen soft, nontender, nondistended, normoactive bowel sounds present all 4 quadrants, Neuro: intact cranial nerves motor and sensory and cerebellar/coordination function without any focal neurological deficit Behavior: Appropriate and cooperative Extremities: Adequate palpable pulses, mild trace edema Skin: Skin flushing with blanching positive from torso to down with some skin rash like picture which is generalized without any papules or pustules no oozing and no target lesions and no desquamation. Data 07/19/25 18:02 07/19/25 18:02 Micro: Microbiology 07/19/25 18:05 Blood Culture - Preliminary Blood SPECIMEN COLLECTED 07/19/25 18:02 Blood Culture - Preliminary Blood SPECIMEN COLLECTED A&P Assessment and plan 1. UTI (urinary tract infection): Patient UA was suggestive of UTI however abdominal and pelvis CT scan did not show any features of hydronephrosis or complicated pyelonephritis Based on the patient presentation and possible source of infection as UTI to start the patient on Zosyn and also to give clindamycin to cover any toxins for 72 hours Blood cultures and urine cultures to follow Maintain MAP over 65 Patient is fluid responsive and adequate fluid resuscitation to be provided Nor epi standby Maintain vitals and monitoring accordingly Monitor intake and output Lactate 1.6 2. Sepsis: Fluid boluses to maintain MAP over 65 Lactate 1.6, patient having skin blanching and skin lesions in the torso. No disclamation Monitor for any further worsening of skin condition IV steroids Broad-spectrum antibiotics with clindamycin and Zosyn to continue Follow-up blood cultures and urine cultures Maintain MAP over 65 and to support with vasopressors as needed Continue fluid resuscitation. 3. LATRELL (acute kidney injury): Patient having mild LATRELL, likely underlying sepsis and UTI Fluid resuscitation and monitor of renal functions and electrolytes with correction accordingly 4. Type 2 diabetes mellitus with hyperglycemia, without long-term current use of insulin: Insulin sliding scale 5. Pelvic cyst in female: Abdominal pelvis CT scan reported right adnexal mass Ultrasound pelvis as per recommendation from the radiology and to further report PDMP PDMP Reviewed: Not Reviewed Attestations Medical Necessity Statement*: Lissa Schultz [place] hospital stay will require greater than 2 midnights for severe sepsis, Urosepsis? Time Spent in Patient Care: 16 - 35 minutes (>than 50% of time spent in counselling and/or direct pt care on unit). Critical Care Time: The high probability of a clinically significant, sudden or life threatening deterioration, as referenced in this documentation, required my full and direct attention, intervention and personal management. The critical care time shown is in addition to time spent performing any reported separately billable procedures and includes the following: [x] Data and vital sign review and interpretation [x] Patient assessment, examination and intervention [x] Medication orders and management [x] Patient/Family updates as able [x] Care Coordination and Documentation. Other Attestations: Patient condition has been discussed at length with the patient/family, I have independently reviewed the chart labs imaging/diagnostics/EKG. the goals of care and code status with the patient/family/NOK/legal customer loyalty representative, and documented accordingly. The patient/family has been informed about the current condition and further plan of care. Agreed with the plan of care and understood without any language barrier. Every effort was made to ensure accuracy of woodwork teacher. Any obvious errors or omissions should be clarified with the author of the document. Coding Level of Care Code Critical Care >/= 30 minutes Diagnoses UTI (urinary tract infection) N39.0 Sepsis A41.9 LATRELL (acute kidney injury) N17.9 Type 2 diabetes mellitus with hyperglycemia, without long-term current use of insulin E11.65 Diabetes mellitus type: type 2 Pelvic cyst in female N94.89
--- NOTE | 2025-07-20 02:46 | USR_ITS ---
PROCEDURE INFORMATION: Exam: US Pelvis, Complete, Non-Obstetric Exam date and time: 07/20/2025 2:59 PM Age: 60 years old Clinical indication: Abnormal findings; Abnormal imaging test; Additional info: Right adnexal mass, patient unable to tolerate tv. Patient to fill bladder and will scan later. TECHNIQUE: Imaging protocol: Transabdominal pelvic nonobstetric ultrasound. Complete exam. Real time ultrasound with image documentation. COMPARISON: CT abdomen pelvis w con* [id number] 07/19/2025 9:03 PM FINDINGS: Uterus: Only portions of the uterus were visualized, with very limited characterization. No gross abnormality was observed. Right ovary/adnexa: Ovary is not visualized. Left ovary/adnexa: Ovary is not visualized. Intraperitoneal space: No intraperitoneal fluid visualized. Urinary bladder: Only partially distended. US/US pelvic complete* [id number] IMPRESSION: Extremely limited examination. No gross abnormality observed.
--- NOTE | 2025-07-20 03:42 | USCV_ITS ---
Lissa Warren Age: 60 Gender: F : 1965 Exam Date: 07/20/2025 10:23 Ordering Phys: Jessica Gandara MD Technologist: Tahir Carranza Exam Location: [facility] – [place] Indication: fever, skin balancing rash to rule out valve veg BP: 121 / 78 HR: 78 Rhythm: Sinus Technical Quality: Adequate MEASUREMENTS (Male / Female) Normal Values 2D ECHO LV Diastolic Diameter PLAX 4.0 cm 4.2 - 5.9 / 3.9 - 5.3 cm IVS Diastolic Thickness 1.0 cm 0.6 - 1.0 / 0.6 - 0.9 cm IVS Systolic Thickness 1.2 cm LVPW Diastolic Thickness 0.8 cm 0.6 - 1.0 / 0.6 - 0.9 cm LVPW Systolic Thickness 1.4 cm LVOT Diameter 2.0 cm LV Ejection Fraction 2D Teich 66.3 % LV Ejection Fraction MOD 4C 67.2 % LV Ejection Fraction MOD 2C 73.2 % LV Ejection Fraction 2C AL 73.6 % LA Diameter 3.1 cm RA Systolic Volume 4C AL 28.4 ml RA Systolic Volume 4C MOD 28.7 ml LA Sys Volume AL 37.0 cm cubed LA Sys Volume Index AL 19.5 cm cubed/m squared Aorta at Sinotubular Diameter 2.1 cm IVC Diameter 2.0 cm M-MODE LA Ao Ratio MM 1.5 AV Cusp Separation MM 1.7 cm DOPPLER AV Peak Velocity 95.0 cm/s LVOT Peak Velocity 74.0 cm/s AV Area Cont Eq vti 2.5 cm squared AV Area Cont Eq pk 2.5 cm squared MV Peak Velocity 102.0 cm/s MV Area PHT 8.4 cm squared Mitral E to A Ratio 1.1 TV Peak Velocity 200.5 cm/s TR Peak Velocity 207.0 cm/s TR Peak Gradient 17.1 mmHg TR Mean Velocity 184.0 cm/s TR Mean Gradient 13.7 mmHg TR Velocity Time Integral 58.9 cm PV Peak Velocity 85.0 cm/s RV Ejection Time 0.3 s FINDINGS Left Ventricle Normal left ventricular size, systolic function and wall thickness with no regional wall motion abnormality. Left ventricular ejection fraction is 67%. Normal left ventricular diastolic function. Right Ventricle Normal right ventricular size and systolic function. Right Atrium Normal right atrial size. Left Atrium Normal left atrial size. IA Septum Normal appearance of the interatrial septum. Mitral Valve Normal mitral valve structure. No mitral valve stenosis. Trace regurgitation. No vegetation. Aortic Valve Normal aortic valve structure. No aortic valve stenosis or regurgitation. No vegetation. Tricuspid Valve Normal tricuspid valve structure. No tricuspid valve stenosis or regurgitation. Normal pulmonary pressure. No vegetation. Pulmonic Valve Normal pulmonic valve structure. No pulmonic valve stenosis or regurgitation. Pericardium Small pericardial effusion with no echocardiogram evidence of tamponade. Aorta Normal diameter of the aortic root and ascending thoracic aorta. IVC Normal IVC diameter. CONCLUSIONS Normal left ventricular size, systolic function and wall thickness with ejection fraction of 67%. Normal right ventricular size and systolic function. No vegetations. Cristhian Boyd MD, FACC (Electronically Signed) Final Date: 20 July 2025 14:03 S
[2025-07-20] MEDS: piperacillin-tazobactam 3.375 GM in sodium chloride 0.9% (plus) 50 ML IV ×3 (03:55→20:44)
[2025-07-20] MEDS: hydrocortisone 100 mg/2 mL SDV IVP ×4 (03:57→20:45)
[2025-07-20 04:27] LABS: Hematocrit 38.5 % (36-47); Hemoglobin 12.80 g/dL (11.27-16.99); Mean Corpuscular HGB Conc 33.2 g/dL (30-55); Mean Corpuscular Hemoglobin 29.4 pg (27-33); Mean Corpuscular Volume 88.3 fl (85-98); Platelet Count 120 10^3/cmm (157-399); Red Blood Count 4.36 10^6/uL (3.85-5.65); White Blood Count 21.40 10^3/uL (3.29-11.43)
[2025-07-20 04:39] LABS: Slide Review Slide Review Perform
[2025-07-20 04:43] LABS: Alanine Aminotransferase 42 U/L (0-33); Albumin Level 3.0 g/dL (3.5-5.2); Alkaline Phosphatase 65 U/L (35-105); Anion Gap 17.5 (5-19); Aspartate Amino Transferase 37 U/L (0-32); Blood Urea Nitrogen 18 mg/dL (8-23); Calcium 6.6 mg/dL (8.5-10.5); Carbon Dioxide 16 mmol/L (22-29); Chloride 108 mmol/L (98-107); Globulin 2.5 g/dL (1.3-4.6); Glucose 160 mg/dL (65-115); Osmolality Calculated 291 mOsm/kg (285-295); Potassium 3.5 mmol/L (3.5-5.1); Sodium 138 mmol/L (136-145); Total Protein 5.5 g/dL (6.6-8.7)
--- NOTE | 2025-07-20 04:47 | PC.NURSE ---
Verbal orders: Dr. Gandara gave this nurse multiple verbal orders: -3L bolus - Run NS at 200mL/hr - tick panel - Echo
[2025-07-20 05:07] LABS: Creatinine Clr Calc Pharmacy 61.6959
[2025-07-20 05:44] LABS: Absolute Segmented Neutrophil 12.2 10/cmm (1.6-7.1); Atypical Lymphs 1.0 % (0-5); Band Neutrophils Absolute 7.1 10^3/cmm (0.0-1.2); Giant Platelets Trace; Total Cells Counted 100 (0-100)
[2025-07-20] MEDS: heparin 5,000 unit/mL INJ 1 mL 5000 UNIT SUBCUT ×2 (09:06→20:45)
--- NOTE | 2025-07-20 15:34 | PM.MISC ---
Miscellaneous Note Purpose of Documentation: Follow-up on fever with sepsis Note: Patient admitted today and I am just following up for care. Noted to have thrombocytopenic off of the baseline will follow through with platelet counts. Patient is afebrile on rounds and looking and feeling better. Will continue to monitor continue to follow lab studies for care. If the platelets goes any further down we will follow through with the HIT antibodies. This most likely is due to febrile illness with bacteremia. Patient does have maculopapular rash all over the back prior to even making it to the hospital and this could be issues with infection blood-borne
[2025-07-20 15:55] LABS: MRSA PCR OZH (swab) NOT DETECTED (Not Detecte)
[2025-07-20 16:22] LABS: Hematocrit 38.6 % (36-47); Hemoglobin 12.50 g/dL (11.27-16.99); Mean Corpuscular HGB Conc 32.4 g/dL (30-55); Mean Corpuscular Hemoglobin 29.3 pg (27-33); Mean Corpuscular Volume 90.4 fl (85-98); Platelet Count 143 10^3/cmm (157-399); Red Blood Count 4.27 10^6/uL (3.85-5.65); White Blood Count 22.26 10^3/uL (3.29-11.43)
[2025-07-20 16:43] LABS: Alanine Aminotransferase 49 U/L (0-33); Albumin Level 3.1 g/dL (3.5-5.2); Alkaline Phosphatase 67 U/L (35-105); Anion Gap 17.0 (5-19); Aspartate Amino Transferase 22 U/L (0-32); Blood Urea Nitrogen 19 mg/dL (8-23); Calcium 7.1 mg/dL (8.5-10.5); Carbon Dioxide 14 mmol/L (22-29); Chloride 112 mmol/L (98-107); Creatinine Clr Calc Pharmacy 70.8072; Globulin 3.0 g/dL (1.3-4.6); Glucose 312 mg/dL (65-115); Osmolality Calculated 302 mOsm/kg (285-295); Potassium 4.0 mmol/L (3.5-5.1); Sodium 139 mmol/L (136-145); Total Protein 6.1 g/dL (6.6-8.7)
[2025-07-20 17:02] LABS: Absolute Segmented Neutrophil 14.0 10/cmm (1.6-7.1); Atypical Lymphs 1.0 % (0-5); Band Neutrophils Absolute 6.5 10^3/cmm (0.0-1.2); Total Cells Counted 100 (0-100)
[2025-07-21] VITALS (30 sets, daily range): BP systolic 92–140; BP diastolic 48–89; PULSE 67–119; RESP 18–41; TEMP 36.7–39.4; O2SAT 89–96
[2025-07-21 05:10] LABS: Alanine Aminotransferase 68 U/L (0-33); Albumin Level 3.6 g/dL (3.5-5.2); Alkaline Phosphatase 71 U/L (35-105); Anion Gap 21.0 (5-19); Aspartate Amino Transferase 28 U/L (0-32); Blood Urea Nitrogen 17 mg/dL (8-23); Calcium 7.9 mg/dL (8.5-10.5); Carbon Dioxide 16 mmol/L (22-29); Chloride 109 mmol/L (98-107); Globulin 2.4 g/dL (1.3-4.6); Glucose 155 mg/dL (65-115); Osmolality Calculated 299 mOsm/kg (285-295); Potassium 4.0 mmol/L (3.5-5.1); Sodium 142 mmol/L (136-145); Total Protein 6.0 g/dL (6.6-8.7)
[2025-07-21] MEDS: hydrocortisone 100 mg/2 mL SDV IVP ×4 (05:16→20:07)
[2025-07-21] MEDS: piperacillin-tazobactam 3.375 GM in sodium chloride 0.9% (plus) 50 ML IV (05:17)
[2025-07-21 05:19] LABS: Creatinine Clr Calc Pharmacy 63.7265
[2025-07-21] MEDS: heparin 5,000 unit/mL INJ 1 mL 5000 UNIT SUBCUT ×2 (09:45→20:48)
[2025-07-21] MEDS: cefTRIAXone 2,000 mg SDV 2000 MG IVP (11:12)
[2025-07-21] MEDS: doxycycline 100 MG in sodium chloride 0.9% (plus) 100 ML IV ×2 (11:12→22:58)
[2025-07-21 13:40] LABS: Coronavirus 229E,HKU1,NL63,OC4 Not Detected (NOT DETECT); Parainfluenza Virus Type 1 Not Detected (NOT DETECT); Parainfluenza Virus Type 2 Not Detected (NOT DETECT); Parainfluenza Virus Type 3 Not Detected (NOT DETECT); Parainfluenza Virus Type 4 Not Detected (NOT DETECT); SARS-COV-2 Not Detected (NOT DETECT)
[2025-07-21] MEDS: HYDROcodone-acetaminophen 5-325 mg Tablet 1 TAB PO ×2 (14:07→20:07)
--- NOTE | 2025-07-21 15:55 | P.CONIM_ITS ---
Providers/Reason For Consult 2 Consulting Physician/Specialty*: Karen Campa MD/ Infectious disease Reason for Consult*: fever with diffuse rash Requesting Physician: Flor Saeed MD Attending Physician: Flor Saeed MD Primary Care Provider: Chikis Flores, TEMPLATE [employer]ER-[employer] History of Present Illness History of Present Illness Lissa Warren is a 60 year old female with PMH DM in her usual state of health until (today in Tuesday) when she developed fever to 105F at home along with a rash along her chest all. Over the next 2 days she continued to have generalized weakness and a spreading rash over her trunk and back for which she was admitted to the hospital on 07/20/25. She has been febrile here with T max 103F. Labs notable for leukocytosis at 22,000, mild thrombocytopenia with platelet at 122. She denies any abdominal pain, nausea or vomiting. Had 1 episode of diarrhea today. 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 No raw eggs consumed. no recent travel no animal bites . Has dogs and cats as pets no altered sensorium. She is awake, alert and oriented, denies any headache or photophobia Review of Systems 2 General: Reports: 10 or more systems reviewed and unremarkable except in HPI and below Const: Denies: fever(s), chills or body aches Eyes: Denies: change in vision, blurry vision or photophobia ENMT: Reports: hoarseness; Denies: throat pain, enlarged tonsils, odynophagia or nasal congestion Card: Denies: chest pain, palpitations, irregular heart rhythm, edema, swelling of feet/ankles, lightheadedness, pre-syncope, dyspnea on exertion or orthopnea Resp: Denies: dyspnea, productive cough, non-productive cough, wheezing, stridor, pain on inspiration, change in phlegm color, hemoptysis or chest congestion GI: Denies: abdominal pain, nausea, vomiting, hematemesis, coffee ground emesis, dysphagia, heartburn, diarrhea, constipation, GI cramping, change in stool character, hematochezia or melena : Denies: flank pain, difficulty voiding, dysuria, urinary frequency, urinary urgency, urinary hesitancy or hematuria Musc: Denies: neck pain, back pain, extremity pain, joint swelling, joint warmth or deformity Neuro: Denies: headache(s), numbness in extremities, weakness in extremities, sensory changes, difficulty walking, frequent falls, dizziness, vertigo, behavioral changes, Slurred speech present or seizure-like activity Psych: Denies: anxiety, depression, suicidal ideation or homicidal ideation Endo: Denies: polyuria, polydipsia, tired all the time, cold intolerance or hot flashes Tony/Lymph: Denies: easy bruising or easy bleeding Medications/Allergies Home Medications ?Medication ?Instructions ?Recorded ?Confirmed ?Last Taken ?Type magnesium 250 mg tablet 250 mg PO QPM 03/17/2207/2007/18/25 History nebulizers #1 ea 10/15/24 07/20/25 Unkn own Rx metformin 500 mg tablet,extended 500 mg PO DAILY #90 t abs 02/14/25 07/20/25 07/18/25 Rx release 24 hr tirzepatide 5 mg/0.5 mL 5 mg (0.5 mL) SUBCUT .weekly #2 mL 02/14/25 07/20/25 07/12/25 Rx subcutaneous pen injector (Guillaumeunjarethro) tizanidine 4 mg tablet (Zanaflex) 2 mg (1/2 x 4 mg) PO BID PRN 05/14/25 07/20/25 Unknown Rx muscle spasticity #90 tabs valerian root 500 mg capsule 500 mg PO QPM 07/20/2507/18/25 History Allergies Allergy/AdvReac Type Severity Reaction Status Date / Time No Known Allergies Allergy Verified 07/10/25 15:41 Current Medications Generic Name Dose Route Start Last Admin Trade Name Freq PRN Reason Stop Dose Admin Acetaminophen 650 mg 07/20/25 14:55 07/21/25 08:02 Acetaminophen 325 Mg Tablet PO 650 mg Q4H PRN Administration MILD PAIN OR INCREASE TEMP Hydrocodone Bitart/Acetaminophen 1 tab 07/19/25 21:17 07/21/25 14:07 Hydrocodone-Acetaminophen 5-325 Mg Tablet PO 1 tab Q4H PRN Administration MODERATE PAIN Ceftriaxone Sodium 2,000 mg 07/21/25 10:45 07/21/25 11:12 Ceftriaxone 2,000 Mg Sdv IVP 2,000 mg Q24H CARLOS Administration Protocol Famotidine 20 mg 07/20/25 05:00 07/21/25 05:16 Famotidine 20 Mg/2 Ml Inj IVP 20 mg DAILY CARLOS Administration Heparin Sodium (Porcine) 5,000 unit 07/19/25 21:30 07/21/25 09:45 Heparin 5,000 Unit/Ml Inj 1 Ml SUBCUT 5,000 unit Q12H CARLOS Administration Hydrocortisone Sodium Succinate 100 mg 07/20/25 02:30 07/21/25 14:07 Hydrocortisone 100 Mg/2 Ml Sdv IVP 07/23/25 02:29 100 mg Q6H CARLOS Administration Sodium Chloride 1,000 mls @ 75 mls/hr 07/21/25 10:15 07/21/25 10:28 Sodium Chloride 0.9% IV 75 mls/hr .[id number] CARLOS Administration Doxycycline Hyclate 100 mg/ 100 mls @ 100 mls/hr 07/21/25 11:30 07/21/25 12:17 Sodium Chloride IV Infused Q12H CARLOS Infusion Protocol Insulin Human Lispro 0 unit 07/20/25 08:00 07/21/25 12:23 Insulin Lispro 100 Unit/1 Ml SUBCUT 6 unit WM&BEDTIME CARLOS Administration Protocol PFSH Acute 2 PFSH: Medical History Type 2 diabetes mellitus with hyperglycemia, without long-term current use of insulin BMI 29.0-29.9,adult Surgical History No pertinent past surgical history Family History Mother Diabetes Hypertension Stroke Sister Diabetes Brother Diabetes Father Dementia Hypertension Denies family history of Cancer Social History Smoking and tobacco/nicotine status: never used tobacco/nicotine Second hand smoke exposure: No Alcohol intake: never Substance/Drug Use: never Adopted: No Caregiver/support person: No Lives independently: Yes Household members: family Housing: House Marital status: Single Number of children: 0 Number of grandchildren: 0 service: No Current occupational status: employed Current occupation: [employer] Current occupational exposures/hazards: No Pets and animals: Yes Pets & animals: farm animals Sexually active: No Do you think of yourself as: Straight/Heterosexual Current gender identity: Female Vitals/I&O/Wt Last Vital Signs Temp 98.1 F 07/21/25 13:27 Pulse 70 07/21/25 15:50 Resp 27 H 07/21/25 15:00 BP 135/76 07/21/25 15:00 Pulse Ox 91 07/21/25 12:00 O2 Del Method Nasal Cannula 07/21/25 12:00 O2 Flow Rate 4 07/21/25 12:00 07/21/25 07/21/25 07/21/25 06:59 14:59 22:59 Intake Total 580 / 1740 372 / 372 Balance 580 / 1740 372 / 372 Weight last 48 hrs Weight 82.1 kg Weight 81.873 kg Weight 76.43 kg Weight 75.296 kg Physical Exam 2 Narrative: General: No acute distress, AO x3 HEENT: PERRLA, pupils bilaterally equal and reactive, pallors not present Chest: Normal vesicular breath sounds, no added sounds, equal good air entry bilaterally CVS: S1-S2 regular, no murmurs, no tachycardia, no gallops, no rubs Abdomen: Soft, nontender, no organomegaly, bowel sounds present Neuro: No focal deficits, no facial deformity, AO x3, power 5/5 in all limbs Extremities: diffuse papular rash affecting trunk and back and upper thighs. Faint maculopapular rash affecting neck and face. Data 07/20/25 16:02 07/21/25 04:29 Other Labs: Radiology Impressions Chest X-Ray 07/19/25 17:53 IMPRESSION: No acute findings. Abdomen/Pelvis CT 07/19/25 20:13 IMPRESSION: 1. Mild mucosal thickening of the distal esophagus which is nonspecific but can be seen in esophagitis. 2. Moderate thickening of the gastric antrum which is nonspecific but can be seen in gastritis. Gastroenterology consultation should be considered. 3. Right adrenal lesion incompletely characterized on this examination measures 11 mm. To confirm adrenal adenoma, follow-up adrenal protocol CT or MRI is recommended. 4. Heterogeneously enhancing right adnexal cyst measures 2.0 cm series 5, image 78. Given the patient's age further evaluation with pelvic MRI or ultrasound could be considered. 5. Scattered bilateral pulmonary nodules measuring up to 5 mm in the left lower lobe series 5, image 5. Follow-up as per Fleischner criteria. Pelvis Ultrasound 07/20/25 02:46 IMPRESSION: Extremely limited examination. No gross abnormality observed. Laboratory Results WBC 22.26 10^3/uL (3.29-11.43) H 07/20/25 16:02 RBC 4.27 10^6/uL (3.85-5.65) 07/20/25 16:02 Hgb 12.50 g/dL (11.27-16.99) 07/20/25 16:02 Hct 38.6 % (36-47) 07/20/25 16:02 MCV 90.4 fl (85-98) 07/20/25 16:02 MCH 29.3 pg (27-33) 07/20/25 16:02 MCHC 32.4 g/dL (30-55) 07/20/25 16:02 RDW 13.2 % (12.1-15.1) 07/20/25 16:02 Plt Count 143 10^3/cmm (157-399) L 07/20/25 16:02 MPV 10.4 fL (7.4-10.4) 07/20/25 16:02 Neut % (Auto) 93.9 % 07/19/25 18:02 Lymph % (Auto) Not Reportable 07/20/25 03:35 [place] % (Auto) Not Reportable 07/20/25 03:35 Eos % (Auto) 0.8 % 07/19/25 18:02 Baso % (Auto) 0.2 % 07/19/25 18:02 Neut # (Auto) 10.90 10^3/uL (1.8-7.7) H 07/19/25 18:02 Lymph # (Auto) Not Reportable 07/20/25 03:35 [place] # (Auto) Not Reportable 07/20/25 03:35 Eos # (Auto) 0.1 10^3/uL (0.0-0.8) 07/19/25 18:02 Baso # (Auto) 0.0 10^3/uL (0.0-0.1) 07/19/25 18:02 Nucleated RBC % (auto) 0 % 07/19/25 18:02 Total Counted 100 (0-100) 07/20/25 16:02 Atypical Lymphs % 1.0 % (0-5) 07/20/25 16:02 Absolute Neutrophils 20.5 10^3/cmm (1.4-6.5) H 07/20/25 16:02 Segmented Neutrophils 63 % 07/20/25 16:02 Band Neutrophils 29.0 % 07/20/25 16:02 Absolute Lymphocytes 0.7 10^3/cmm (1.2-3.4) L 07/20/25 16:02 Lymphocytes (Manual) 2 % 07/20/25 16:02 Monocytes (Manual) 2.0 % 07/20/25 16:02 Absolute Monocytes 0.4 10^3/cmm (0.1-0.6) 07/20/25 16:02 Eosinophils (Manual) 0 % 07/20/25 16:02 Absolute Eosinophils 0.0 10^3/cmm (0.0-0.7) 07/20/25 16:02 Basophils (Manual) 0.0 % 07/20/25 16:02 Absolute Basophils 0.0 10^3/cmm (0.0-0.2) 07/20/25 16:02 Metamyelocytes 3.0 % 07/20/25 16:02 Nucleated RBCs # 0.0 /100WBC 07/19/25 18:02 Platelet Estimate Decreased (Normal) L 07/20/25 16:02 Giant Platelets Trace 07/20/25 03:35 PT 16.50 SECONDS (12.1-14.9) H 07/19/25 18:02 INR 1.25 (0.8-1.2) H 07/19/25 18:02 APTT 27.4 SECONDS (23.9-36.7) 07/19/25 18:02 Specimen Type Arterial 07/19/25 22:05 Sample Site Radial, right 07/19/25 22:05 ABG pH 7.39 (7.35-7.45) 07/19/25 22:05 ABG pCO2 33.1 mmHg (35-45) L 07/19/25 22:05 ABG pO2 65.6 mmHg (80.0-100.0) L 07/19/25 22:05 ABG PO2/FiO2 Ratio 312 07/19/25 22:05 ABG HCO3 19.9 mmol/L (22-26) L 07/19/25 22:05 ABG O2 Saturation 93.7 07/19/25 22:05 ABG Base Excess -4.2 mmol/L (-2.0-2.0) L 07/19/25 22:05 Endy Test Pos 07/19/25 22:05 A-a O2 Gradient 5.4 mmHg (5-10) 07/19/25 22:05 Hematocrit 43.5 % (37-47) 07/19/25 22:05 Hgb O2 Saturation 92.1 % (95-100) L 07/19/25 22:05 Carboxyhemoglobin 0.8 %THgb (0.4-20.1) 07/19/25 22:05 Methemoglobin 0.9 % (0.4-1.5) 07/19/25 22:05 Total Hemoglobin 14.2 g/dL (12-16) 07/19/25 22:05 Sodium 133.0 mmol/L (131-143) 07/19/25 22:05 Potassium 3.4 mmol/L (3.5-5.0) L 07/19/25 22:05 Glucose 175.0 mg/dL (70-115) H 07/19/25 22:05 Ionized Calcium 1.1 mmol/L (1.1-1.4) 07/19/25 22:05 O2 Delivery Device Room air 07/19/25 22:05 FiO2 21.0 % 07/19/25 22:05 Email Campaign Specialist ID [id number] 07/19/25 22:05 Sodium 142 mmol/L (136-145) 07/21/25 04:29 Potassium 4.0 mmol/L (3.5-5.1) 07/21/25 04:29 Chloride 109 mmol/L (98-107) H 07/21/25 04:29 Carbon Dioxide 16 mmol/L (22-29) L 07/21/25 04:29 Anion Gap 21.0 (5-19) H 07/21/25 04:29 BUN 17 mg/dL (8-23) 07/21/25 04:29 Creatinine 1.0 mg/dL (0.5-0.9) H 07/21/25 04:29 GFR Calculation 56.4 mL/min (90-130) L 07/21/25 04:29 Glucose 155 mg/dL (65-115) H 07/21/25 04:29 POC Glucose 217 mg/dL (70-110) H 07/21/25 17:17 Calculated Osmolality 299 mOsm/kg (285-295) H 07/21/25 04:29 Lactic Acid 1.9 mmol/L (0.5-2.2) 07/19/25 22:34 Lactate 1.6 mmol/L (0.5-2.2) 07/19/25 19:33 Calcium 7.9 mg/dL (8.5-10.5) L 07/21/25 04:29 Total Bilirubin 0.3 mg/dL (0.15-1.2) 07/21/25 04:29 AST 28 U/L (0-32) 07/21/25 04:29 ALT 68 U/L (0-33) H 07/21/25 04:29 Alkaline Phosphatase 71 U/L (35-105) 07/21/25 04:29 C-Reactive Protein 187.0 mg/L (0.0-4.9) H 07/19/25 18:02 Total Protein 6.0 g/dL (6.6-8.7) L 07/21/25 04:29 Albumin 3.6 g/dL (3.5-5.2) 07/21/25 04:29 Globulin 2.4 g/dL (1.3-4.6) 07/21/25 04:29 Procalcitonin 7.90 ng/mL (0-0.5) H 07/19/25 18:02 Urine Color Dark yellow (Yellow) A 07/19/25 18:58 Urine Appearance Turbid (CLEAR) A 07/19/25 18:58 Urine pH 5.5 (5-7) 07/19/25 18:58 Ur Specific [place] 1.034 (1.005-1.030) H 07/19/25 18:58 Urine Protein 2+ (Negative) A 07/19/25 18:58 Urine Glucose (UA) Negative (Normal) 07/19/25 18:58 Urine Ketones 4+ (Negative) 07/19/25 18:58 Urine Blood 1+ (Negative) A 07/19/25 18:58 Urine Nitrate Negative (Negative) 07/19/25 18:58 Urine Bilirubin 1+ (Negative) H 07/19/25 18:58 Urine Urobilinogen 1.0 mg/dL (Negative) 07/19/25 18:58 Ur Leukocyte Esterase 3+ (Negative) A 07/19/25 18:58 Urine RBC 11-20 /hpf (0-2) H 07/19/25 18:58 Urine WBC >100 /hpf (0-5) H 07/19/25 18:58 Ur Squamous Epith Cells 6-10 /hpf (0-5) 07/19/25 18:58 Amorphous Sediment Not Reportable 07/19/25 18:58 Urine Bacteria 3+ /hpf (NONE) H 07/19/25 18:58 Hyaline Casts 36.83 /lpf 07/19/25 18:58 Urine Mucus 2+ /hpf 07/19/25 18:58 Nasal MRSA (PCR) Not detected (Not Detecte) 07/20/25 14:30 Serum Ketones Negative (Negative) 07/19/25 18:02 Adenovirus (PCR) Not detected (NOT DETECT) 07/21/25 11:45 C. pneumoniae DNA (PCR) Not detected (NOT DETECT) 07/21/25 11:45 Coronavirus 229E (PCR) Not detected (NOT DETECT) 07/21/25 11:45 Monoscreen Negative (Negative) 07/21/25 04:29 Human Metapneumovir PCR Not detected (NOT DETECT) 07/21/25 11:45 Influenza A (H1) PCR Not detected (NOT DETECT) 07/21/25 11:45 Influenza A (PCR) Negative (Negative) 07/19/25 18:35 Influ A (H1/09) PCR Not detected (NOT DETECT) 07/21/25 11:45 Influenza A (H3) PCR Not detected (NOT DETECT) 07/21/25 11:45 Influenza Type A (PCR) Not detected (NOT DETECT) 07/21/25 11:45 Influenza Type B (PCR) Not detected (NOT DETECT) 07/21/25 11:45 M. pneumoniae (PCR) Not detected (NOT DETECT) 07/21/25 11:45 Parainfluenza 1 (PCR) Not detected (NOT DETECT) 07/21/25 11:45 Parainfluenza 2 (PCR) Not detected (NOT DETECT) 07/21/25 11:45 Parainfluenza 3 (PCR) Not detected (NOT DETECT) 07/21/25 11:45 Parainfluenza 4 (PCR) Not detected (NOT DETECT) 07/21/25 11:45 RSV (PCR) Negative (Negative) 07/19/25 18:35 RSV Type A (PCR) Not detected (NOT DETECT) 07/21/25 11:45 RSV Type B (PCR) Not detected (NOT DETECT) 07/21/25 11:45 Entero/Rhino (PCR) Not detected (NOT DETECT) 07/21/25 11:45 SARS-CoV-2 (PCR) Not detected (NOT DETECT) 07/21/25 11:45 Micro: Microbiology 07/21/25 10:00 Blood Culture - Preliminary Blood SPECIMEN COLLECTED 07/21/25 10:02 Blood Culture - Preliminary Blood SPECIMEN COLLECTED 07/19/25 18:58 Urine Culture - Final Urine,Clean Catch 07/19/25 18:05 Blood Culture - Preliminary Blood NEGATIVE TO DATE 07/19/25 18:02 Blood Culture - Preliminary Blood NEGATIVE TO DATE A&P Assessment and plan 1. Thrombocytopenia: 2. UTI (urinary tract infection): 3. Fever: 4. Diffuse papular rash: Plan: 60 year old lady presenting with fever and diffuse rash. Source is under investigation UA with 3+ leukocyte esterase, > 100 WBC however patient denies any urinary symptoms such as dysuria or urgency CT abdomen without any obstructive hydronpehrosis or other pathology CXr without infiltrates Noted mild thrombocytopenia, mildly elevated ALT, mild lymphopenia with diffus erash raising concern for possible tick mediated illness Tick panel taken, results pending Check Tularemia serology, Ehrlichia DNA and Anaplasma DNA, check RVP Has been on Clindamycin since admission, less likely TSS, D/c clindamycin recent biopsy from face of lesion seen over 3 months- keratosis on biopsy Blood cx thus far negative to date urine cx negative Start ceftriaxone 2g iv every 24 hrs and Doxycycline 100mg iv q12h Monitor for improvement with addition of doxycycline check MELANIE screen no current signs of meningitis will follow PDMP PDMP Reviewed: Not Reviewed Consult Attestations 2 Medical Necessity Statement: per admitting Coding Level of Care Code Acute Code for Chg Fwd Diagnoses Thrombocytopenia D69.6 UTI (urinary tract infection) N39.0 Fever R50.9 Diffuse papular rash R21
--- NOTE | 2025-07-21 18:14 | XRR_ITS ---
PROCEDURE INFORMATION: Exam: XR Chest Exam date and time: 07/21/2025 6:33 PM Age: 60 years old Clinical indication: Shortness of breath; Additional info: Increased SOB upon exertion TECHNIQUE: Imaging protocol: Radiologic exam of the chest. Views: 1 view. COMPARISON: CR (CHEST, ) 07/19/2025 5:54 PM FINDINGS: Lungs: Unremarkable. No consolidation. Pleural spaces: Unremarkable. No pleural effusion. No pneumothorax. Heart/Mediastinum: Unremarkable. No cardiomegaly. Bones/joints: Unremarkable. XR/XR chest 1V portable [id number] IMPRESSION: No acute findings.
[2025-07-22] VITALS (28 sets, daily range): BP systolic 97–145; BP diastolic 48–110; PULSE 68–100; RESP 13–44; TEMP 37.1–38.9; O2SAT 88–96
[2025-07-22] MEDS: hydrocortisone 100 mg/2 mL SDV IVP ×2 (01:35→09:24)
[2025-07-22 04:06] LABS: Hematocrit 36.2 % (36-47); Hemoglobin 12.50 g/dL (11.27-16.99); Mean Corpuscular HGB Conc 34.5 g/dL (30-55); Mean Corpuscular Hemoglobin 29.6 pg (27-33); Mean Corpuscular Volume 85.8 fl (85-98); Nucleated Red Blood Cells % 0.4 %; Platelet Count 120 10^3/cmm (157-399); Red Blood Count 4.22 10^6/uL (3.85-5.65); White Blood Count 27.68 10^3/uL (3.29-11.43)
[2025-07-22 04:15] LABS: Alanine Aminotransferase 48 U/L (0-33); Albumin Level 3.2 g/dL (3.5-5.2); Alkaline Phosphatase 96 U/L (35-105); Anion Gap 16.7 (5-19); Aspartate Amino Transferase 15 U/L (0-32); Blood Urea Nitrogen 17 mg/dL (8-23); Calcium 7.7 mg/dL (8.5-10.5); Carbon Dioxide 18 mmol/L (22-29); Chloride 107 mmol/L (98-107); Creatinine Clr Calc Pharmacy 70.9013; Globulin 2.5 g/dL (1.3-4.6); Glucose 181 mg/dL (65-115); Osmolality Calculated 292 mOsm/kg (285-295); Potassium 3.7 mmol/L (3.5-5.1); Sodium 138 mmol/L (136-145); Total Protein 5.7 g/dL (6.6-8.7)
[2025-07-22 04:33] LABS: Hepatitis A Antibody IgM Non-Reactive (Nonreactive); Hepatitis B Surface Antigen Non-Reactive (Nonreactive)
[2025-07-22 04:35] LABS: HIV 1 & 2 Antigen Non-Reactive (Non-Reactiv)
[2025-07-22 04:37] LABS: Slide Review Slide Review Perform
[2025-07-22 04:38] LABS: LAB Peripheral Smear Sent for Review
[2025-07-22] MEDS: heparin 5,000 unit/mL INJ 1 mL 5000 UNIT SUBCUT ×2 (09:25→20:50)
--- NOTE | 2025-07-22 10:19 | CT_ITS ---
WS: [id number] CTA OF THE CHEST WITH PULMONARY EMBOLISM PROTOCOL TECHNIQUE: High-resolution contrast enhanced CTA of the chest with coronal and sagittal reformatted images with pulmonary embolism protocol. MIP images are also reviewed. CLINICAL INFORMATION: assess for PE COMPARISON: None. DLP: 415.[address] scans at [facility] use at least one of these dose optimization techniques: automated exposure control; mA and/or kV adjustment per patient size (includes targeted exams where dose is matched to clinical indication); or iterative reconstruction. FINDINGS: Small bilateral pleural effusions. Compressive atelectasis in the lung bases. Proximal main pulmonary arteries are normal. Normal segmental and subsegmental pulmonary arteries. No evidence of pulmonary embolus. Numerous noncalcified pulmonary nodules scattered throughout both lungs largest measuring 8 mm. Normal caliber thoracic aorta. Bronchovascular thickening along the RIGHT hilum. RIGHT hilar lymphadenopathy measuring 2.1 x 1.8 cm. Small esophageal hiatal hernia. CT/CT angio chest PE protcl [id number] IMPRESSION: 1. No evidence of pulmonary embolus 2. Small bilateral pleural effusions 3. Numerous subcentimeter noncalcified pulmonary nodules the largest measuring up to 8 mm. These are nonspecific. Metastatic disease not entirely excluded. 4. Bronchovascular thickening RIGHT hilum with RIGHT hilar masslike lymphadeno jakob measuring 1.8 x 2.1 cm. Neoplasm not excluded. Recommend further evaluati on with bronchoscopy and/or PET/CT.
[2025-07-22 10:57] LABS: Reflex FDPQ test REFLEX FDP QUEST TES
[2025-07-22] MEDS: iohexol 350 mg/mL 500 mL Btl (per mL) IV (11:01)
--- NOTE | 2025-07-22 11:13 | P.PN_ITS ---
Subjective 2 Subjective: ID progress note Last febrile 07/21 at 6 AM Medications: Reviewed: Yes Vitals/I&O/Wt Last Vital Signs Temp 98.8 F 07/22/25 05:00 Pulse 68 07/22/25 10:00 Resp 24 H 07/22/25 10:00 BP 136/78 07/22/25 08:00 Pulse Ox 94 07/22/25 10:00 O2 Del Method Room Air 07/21/25 18:25 O2 Flow Rate 4 07/21/25 12:00 07/21/25 07/22/25 07/22/25 22:59 06:59 14:59 Intake Total 860 / 1232 1160 / 2392 300 / 300 Output Total 900 / 900 Balance 860 / 1232 260 / 1492 300 / 300 Weight last 48 hrs Weight 82.1 kg Physical Exam 2 Narrative: General: No acute distress, AO x3; grossly rash appears to be unchanged seen via telehealth today Data 07/22/25 03:00 07/22/25 03:00 Micro: Microbiology 07/21/25 10:00 Blood Culture - Preliminary Blood NEGATIVE TO DATE 07/21/25 10:02 Blood Culture - Preliminary Blood NEGATIVE TO DATE 07/19/25 18:58 Urine Culture - Final Urine,Clean Catch A&P Assessment and plan 1. Thrombocytopenia: 2. UTI (urinary tract infection): 3. Fever: 4. Diffuse papular rash: Plan: 60 year old lady presenting with fever and diffuse rash. Source is under investigation UA with 3+ leukocyte esterase, > 100 WBC however patient denies any urinary symptoms such as dysuria or urgency CT abdomen without any obstructive hydronpehrosis or other pathology CXr without infiltrates Noted mild thrombocytopenia, mildly elevated ALT, mild lymphopenia with diffus erash raising concern for possible tick mediated illness Tick panel taken, results pending Check [place]mia serology, Ehrlichia DNA and Anaplasma DNA, check RVP Has been on Clindamycin since admission, less likely TSS, D/c clindamycin recent biopsy from face of lesion seen over 3 months- keratosis on biopsy Blood cx thus far negative to date urine cx negative Start ceftriaxone 2g iv every 24 hrs and Doxycycline 100mg iv q12h Monitor for improvement with addition of doxycycline check MELANIE screen no current signs of meningitis will follow 07/22/25 : Overnight patient has needed to be placed on supplemental 02 at 2lpm via oxymask. last febrile 07/21 at 1 AM. WBC count up to 27K today. Rash appearing to be grossly unchnaged. Will obtain DIC panel. Ordered CTA chest to assess for PE. Pending peripheral smear. WBC up to 27K today, clinically no change except 02 requiremnet for which CTA is pending. REsp panel negative. Stable hemodynamics. Continue ceftriaxone and doxycycline for now. Monitor fever curve. COnsider tapering down steroid if no longer inidcated. PDMP PDMP Reviewed: Not Reviewed Attestations 2 Medical Necessity Statement*: per admitting Coding Level of Care Code Acute Code for Chg Fwd Diagnoses Thrombocytopenia D69.6 UTI (urinary tract infection) N39.0 Hematuria presence: without hematuria Urinary tract infection type: site unspecified Fever R50.9 Diffuse papular rash R21
[2025-07-22 11:39] LABS: INR 1.60 (0.8-1.2); Partial Thromboplastin Time 33.8 SECONDS (23.9-36.7); Prothrombin Time 20.00 SECONDS (12.1-14.9)
[2025-07-22] MEDS: doxycycline 100 MG in sodium chloride 0.9% (plus) 100 ML IV (11:43)
[2025-07-22] MEDS: cefTRIAXone 2,000 mg SDV 2000 MG IVP (11:43)
[2025-07-22 12:18] LABS: Fibrinogen 229 mg/dL (174-498)
--- NOTE | 2025-07-22 18:19 | PC.NURSE ---
patient requested something to help sleep, Dr. asif ordered restoril per MAR
--- NOTE | 2025-07-22 20:38 | P.PN_ITS ---
Subjective 2 Subjective: Patient is with much interval improvement from tick related illness. Therapy initiated just yesterday less than 48 hours patient is already showing much improvement. However patient is going to have a spinal tap tomorrow. Stress dose steroid has been discontinued at this time. Vitals/I&O/Wt Last Vital Signs Temp 99.7 F H 07/22/25 19:00 Pulse 92 07/22/25 20:25 Resp 22 H 07/22/25 20:25 BP 134/110 07/22/25 19:00 Pulse Ox 93 07/22/25 20:25 O2 Del Method Oxymask 07/22/25:25 O2 Flow Rate 2 07/22/25 20:25 07/22/25 07/22/25 07/22/25 06:59 14:59 22:59 Intake Total 1160 / 2392 1650 / 1650 300 / 1950 Output Total 900 / 900 Balance 260 / 1492 1650 / 1650 300 / 1950 Weight last 48 hrs Weight 82.1 kg Physical Exam 2 Narrative: Patient is doing okay this morning and also later on during the day at dinnertime patient is sitting up trying to eat but able to eat some but not much but was satisfied. HEENT normocephalic/atraumatic neck neck is supple cardiovascular heart is regular lungs are pretty much clear abdomen soft nontender nondistended unremarkable extremities are intact no edema has good pulses neurology has no focality Integumentary-patient has much rash at the trunk and the back and some on the face looking like maculopapular to miliary rash. lab studies lab studies reviewed and noted. - Lab studies typical of at least care w ith anemia patient hemoglobin was 16 on presentation and now is down to 12.5 and platelets had come down normal 200 platelets down to 120. Patient platelets is stable. Data 07/22/25 03:00 07/22/25 03:00 Micro: Microbiology 07/21/25 10:00 Blood Culture - Preliminary Blood NEGATIVE TO DATE 07/21/25 10:02 Blood Culture - Preliminary Blood NEGATIVE TO DATE A&P Assessment and plan 1. Diffuse papular rash: 2. Fever: 3. Skin lesion: 4. Thrombocytopenia: 5. LATRELL (acute kidney injury): 6. Type 2 diabetes mellitus with hyperglycemia, without long-term current use of insulin: 7. Sepsis: Plan: Ehrlichiosis - Patient is improving on ceftriaxone and doxycycline - Serum Ehrlichia has been sent on admission - Patient for spinal tap tomorrow - Patient is having anemia, respiratory problem but no pneumonia acute renal failure and doing a lot better - Will continue to treat and optimize Thrombocytopenia/anemia/respiratory symptoms - Continue to improve patient is still within less than 48 hours of initiation of therapy - Will continue to treat - White count spiked today because of demargination of white blood cells from steroid therapy on admission - I have discontinued this - I expect white count to be pretty much improved tomorrow morning - Follow-up with care. - Blood cultures were negative. Febrile illness--resolved to very low grade temperature GI and DVT prophylaxis in place PDMP PDMP Reviewed: Not Reviewed Attestations 2 Medical Necessity Statement*: Continue to allow patient some few days for optimization of care regarding ehrlichiosis Coding Level of Care Code Acute Code for Chg Fwd Diagnoses Diffuse papular rash R21 Fever R50.9 Skin lesion L98.9 Thrombocytopenia D69.6 LATRELL (acute kidney injury) N17.9 Type 2 diabetes mellitus with hyperglycemia, without long-term current use of insulin E11.65 Diabetes mellitus type: type 2 Sepsis A41.9 Time Spent (min) 60
[2025-07-23] VITALS (21 sets, daily range): BP systolic 84–157; BP diastolic 58–86; PULSE 106–144; RESP 19–48; TEMP 36.6–38.9; O2SAT 85–99
[2025-07-23] MEDS: doxycycline 100 MG in sodium chloride 0.9% (plus) 100 ML IV ×2 (00:24→11:36)
--- NOTE | 2025-07-23 01:08 | XRR_ITS ---
PROCEDURE INFORMATION: Exam: XR Chest Exam date and time: 07/23/2025 1:15 AM Age: 60 years old Clinical indication: Other: Hypoxia TECHNIQUE: Imaging protocol: Radiologic exam of the chest. Views: 1 view. COMPARISON: CT angio chest PE protcl [id number] 07/22/2025 10:54 AM FINDINGS: Lungs: Diffuse hazy interstitial opacity, which may represent vascular congestion or interstitial pneumonia. No confluent consolidation. Pulmonary nodularity is better characterized on prior CT. Pleural spaces: Small bilateral pleural effusions are better characterized on prior CT from 07/2025. No pneumothorax is seen. Heart/Mediastinum: Right hilar lymphadenopathy is better characterized on prior CT. The heart is normal in size. Bones/joints: Unremarkable. XR/XR chest 1V portable [id number] IMPRESSION: 1. Diffuse hazy interstitial opacity, which may represent vascular congestion or interstitial pneumonia. 2. Right hilar lymphadenopathy is better characterized on prior CT.
[2025-07-23] MEDS: FUROsemide 10 mg/mL SDV 2mL 20 MG IVP ×2 (02:08→06:11)
[2025-07-23] MEDS: FUROsemide 10 mg/mL SDV 4mL 40 MG (02:08)
[2025-07-23 04:04] LABS: Hematocrit 40.1 % (36-47); Hemoglobin 13.40 g/dL (11.27-16.99); Mean Corpuscular HGB Conc 33.4 g/dL (30-55); Mean Corpuscular Hemoglobin 29.3 pg (27-33); Mean Corpuscular Volume 87.6 fl (85-98); Platelet Count 48 10^3/cmm (157-399); Red Blood Count 4.58 10^6/uL (3.85-5.65); White Blood Count 19.05 10^3/uL (3.29-11.43)
[2025-07-23 04:28] LABS: C.Diff PCR (Lab) NEGATIVE (Negative)
[2025-07-23 04:29] LABS: Alanine Aminotransferase 46 U/L (0-33); Albumin Level 3.2 g/dL (3.5-5.2); Alkaline Phosphatase 254 U/L (35-105); Anion Gap 19.7 (5-19); Blood Urea Nitrogen 17 mg/dL (8-23); Calcium 7.8 mg/dL (8.5-10.5); Carbon Dioxide 18 mmol/L (22-29); Chloride 108 mmol/L (98-107); Creatinine Clr Calc Pharmacy 70.9013; Globulin 2.8 g/dL (1.3-4.6); Glucose 157 mg/dL (65-115); Osmolality Calculated 299 mOsm/kg (285-295); Potassium 3.7 mmol/L (3.5-5.1); Sodium 142 mmol/L (136-145); Total Protein 6.0 g/dL (6.6-8.7)
[2025-07-23 04:30] LABS: Aspartate Amino Transferase 29 U/L (0-32)
[2025-07-23 04:55] LABS: Slide Review Slide Review Perform
[2025-07-23 04:56] LABS: Absolute Segmented Neutrophil 14.1 10/cmm (1.6-7.1); Band Neutrophils Absolute 1.7 10^3/cmm (0.0-1.2); Total Cells Counted 100 (0-100); Toxic Granulation 1+; Toxic Vacuolation 1+
--- NOTE | 2025-07-23 05:24 | USCV_ITS ---
Lissa Warren Age: 60 Gender: F : 1965 Exam Date: 07/23/2025 11:12 Ordering Phys: Reji Ahn MD Technologist: PITO Exam Location[place] [facility] [place]: Assess for dvt HISTORY: Assess for dvt PROCEDURES: Venous duplex imaging was performed in bilateral lower extremities. The following venous structures were evaluated: common femoral vein, profunda vein, proximal portion of the greater saphenous vein, superficial femoral vein, and the popliteal vein. In addition, the posterior tibial and peroneal trunk were evaluated. Serial compression, augmentation maneuvers, and spectral Doppler flow evaluation were performed. FINDINGS: No evidence of DVT seen in any vessel visualized at this time. CONCLUSIONS No evidence of right lower extremity DVT. No evidence of left lower extremity DVT. Wally Fitch MD (Electronically Signed) Final Date: 24 July 2025 09:17 S
[2025-07-23 05:27] LABS: ABG PCO2 33.7 mmHg (35-45); ABG PH Result 7.40 (7.35-7.45); Alveolar-Arterial Oxygen Gradi 29.5 mmHg (5-10); Arterial Blood Gas Hematocrit 39.6 % (37-47); Blood Gas Allen Test Pos; Blood Gas Operator Identificat BD; Blood Gas Sample Site Brachial, right; Blood Gas Sample Type Arterial; Carboxyhemoglobin 0.6 %THgb (0.4-20.1); Glucose Level-ABG 168.0 mg/dL (70-115); HCO3 ABG 20.8 mmol/L (22-26); Ionized Calcium Level - ABG 1.1 mmol/L (1.1-1.4); Methemoglobin 1.2 % (0.4-1.5); Oxygen Saturation ABG > 99.1; PO2 ABG 432.0 mmHg (80.0-100.0); PO2 FiO2 Ratio Arterial Blood 432; Potassium Level - ABG 3.3 mmol/L (3.5-5.0); Sodium Level - ABG 139.0 mmol/L (131-143)
[2025-07-23 05:36] LABS: LAB Peripheral Smear Sent for Review
[2025-07-23 07:10] LABS: Respiratory Syncytial Virus Ce NEGATIVE (Negative); SARS-CoV-2 PCR NEGATIVE (Negative)
[2025-07-23] MEDS: FUROsemide 10 mg/mL SDV 10mL 60 MG IVP (07:47)
[2025-07-23] MEDS: morphine 4 mg/mL SDV 1 mL IVP (07:48)
--- NOTE | 2025-07-23 08:30 | P.PN_ITS ---
Subjective 2 Subjective: ID progress note Patient has deteriorated quite significantly in the past 24 hrs She has been febrile through the night to 102F Resp status has decompensated to the point of being tachypneic with RR 40s, started on Bipap overnight, currently lethargic. CTA yesterday was negative for any PE, CXR overnight with diffuse hazy interstitial opacities suggesting pneumonitis vs edema. She received lasix [place] [address] from 120K yesterday LDH > 1900 DIC panel ordered yesterday : D dimer > 20, fibrinogen normal, FDP pending, INR 1.6, LDH 1900 Patient is lethargic this morning in contrast to exam yesterday Medications: Reviewed: Yes Vitals/I&O/Wt Last Vital Signs Temp 97.8 F 07/23/25 07:00 Pulse 139 H 07/23/25 08:04 Resp 48 H 07/23/25 08:04 BP 123/71 07/23/25 08:00 Pulse Ox 95 07/23/25 08:04 O2 Del Method BiPAP 07/23/25 08:04 O2 Flow Rate 2 07/22/25 20:25 FiO2 40 07/23/25 08:04 07/22/25 07/23/25 07/23/25 22:59 06:59 14:59 Intake Total 540 / 2190 352.683 / 2542.683 Output Total 350 / 350 Balance 540 / 2190 2.683 / 2192.683 Weight last 48 hrs Weight 84.822 kg Physical Exam 2 Narrative: Seen via telehealth General: Currently on Bipap HEENT: PERRLA, pupils bilaterally equal and reactive, pallors not present Neuro: lethargic, on bipap, tachypneic,in distress Urinary Catheter Management: Soto Latex: Cath Placed During This Visit: yes Urinary Catheter Date of Insertion: 07/23/25 Urinary Catheter Time of Insertion: 06:10 Data 07/23/25 03:19 07/23/25 03:19 Micro: Microbiology 07/21/25 10:00 Blood Culture - Preliminary Blood NEGATIVE TO DATE 07/21/25 10:02 Blood Culture - Preliminary Blood NEGATIVE TO DATE A&P Assessment and plan 1. Thrombocytopenia: 2. UTI (urinary tract infection): 3. Fever: 4. Diffuse papular rash: Plan: 60 year old lady presenting with fever and diffuse rash. Source is under investigation UA with 3+ leukocyte esterase, > 100 WBC however patient denies any urinary symptoms such as dysuria or urgency CT abdomen without any obstructive hydronpehrosis or other pathology CXr without infiltrates Noted mild thrombocytopenia, mildly elevated ALT, mild lymphopenia with diffus erash raising concern for possible tick mediated illness Tick panel taken, results pending Check Tularemia serology, Ehrlichia DNA and Anaplasma DNA, check RVP Has been on Clindamycin since admission, less likely TSS, D/c clindamycin recent biopsy from face of lesion seen over 3 months- keratosis on biopsy Blood cx thus far negative to date urine cx negative Start ceftriaxone 2g iv every 24 hrs and Doxycycline 100mg iv q12h Monitor for improvement with addition of doxycycline check MELANIE screen no current signs of meningitis will follow 07/22/25 : Overnight patient has needed to be placed on supplemental 02 at 2lpm via oxymask. last febrile 07/21 at 1 AM. WBC count up to 27K today. Rash appearing to be grossly unchnaged. Will obtain DIC panel. Ordered CTA chest to assess for PE. Pending peripheral smear. WBC up to 27K today, clinically no change except 02 requiremnet for which CTA is pending. REsp panel negative. Stable hemodynamics. Continue ceftriaxone and doxycycline for now. Monitor fever curve. COnsider tapering down steroid if no longer inidcated. 07/23/25 Patient has had a significant worsening overnight. This morning she is lethargic, tachypneic on Bipap ventilation. RR 40s. Tachycardic 140s, sinus tachycardia. Platelt count dropped to 48K from 120K yesterday. CTA chest perfromed yesterday did not show any PE. Numerous subcentimeter noncalcified pulmonary nodules the largest measuring up to 8 mm. were noted. Metastatic disease not entirely excluded per radiology read. Bronchovascular thickening RIGHT hilum with RIGHT hilar masslike lymphadenopathy measuring 1.8 x 2.1 cm. Neoplasm not excluded. Bronch vs PET recommended for further diagnostics. DIC labs as ordered yesterday showed elevated D dimer > 20, INR 1.6, FDP pending, normal fibrinogen, LDH 1900. Febrile to 102F overnight persistently. with deranged panel as above and acute worsening, concerned for TTP vs HUS. pending peripheral smear as ordered yesterday. Lp was cancelled due to falling platelet and elevated INR. D/c ceftriaxone. Will broaden abx to meropenem and vancomycin iv. Recommend hamatology assessment. I will be off call and not be available for ID call until Aug 02. Patient will need continued ID involvement in her care. Recommend transfer to higher center for continuity of ID and additional hematology assessment as noted above. PDMP PDMP Reviewed: Not Reviewed Attestations 2 Medical Necessity Statement*: per admitting Coding Level of Care Code Acute Code for Chg Fwd Diagnoses Thrombocytopenia D69.6 UTI (urinary tract infection) N39.0 Hematuria presence: without hematuria Urinary tract infection type: site unspecified Fever R50.9 Diffuse papular rash R21
--- NOTE | 2025-07-23 08:41 | PC.NURSE ---
at shift change patient breathing 40 times a minute, intermittent confusion, HR 140s, Dr. Saeed ordered meds per DEC
--- NOTE | 2025-07-23 08:56 | XRR_ITS ---
PROCEDURE INFORMATION: Exam: XR Chest Exam date and time: 07/23/2025 8:59 AM Age: 60 years old Clinical indication: Device placement; Ett placement (vent status); Additional info: Intubation TECHNIQUE: Imaging protocol: Radiologic exam of the chest. Views: 1 view. COMPARISON: CR (CHEST, ) 07/23/2025 1:15 AM FINDINGS: Tubes, catheters and devices: An endotracheal tube is placed with its tip 4.3 cm from the tenzin. Lungs: See Soft tissues finding. Pleural spaces: Unremarkable. No pleural effusion. No pneumothorax. Heart/Mediastinum: Unremarkable. No cardiomegaly. Bones/joints: Unremarkable. Soft tissues: There is little change in the appearance of the chest compared with earlier today. Bilateral interstitial opacities are again noted more prominently seen in the lower lobes and most notably on the right. There may be a slight worsening compared with earlier today. XR/XR chest 1V portable [id number] IMPRESSION: 1. Endotracheal tube tip 4.3 cm from the tenzin. 2. Slightly more prominent bilateral interstitial opacities compared with earlier today.
[2025-07-23] MEDS: midazolam hcl 100 MG/100 ML BAG IV (09:00)
--- NOTE | 2025-07-23 09:04 | PC.NURSE ---
Patient becoming more lethargic, called Dr. Saeed came, to bedside, order to intubate, performed by dr torres
--- NOTE | 2025-07-23 09:05 | ECG_ITS ---
[facility] Test Date: 2025-07-23 Pat Name: Lissa Warren Department: Room: ICU03 Gender: Female Interim Controller: : 1965 Requested By: Flor Gonzales Order Number: [id number] Yoselin MD: Iva Jerez M.D. Measurements Intervals [place] Rate: 135 P: 49 PA: 129 QRS: 102 QRSD: 78 T: 3 QT: 357 QTc: 536 Interpretive Statements SINUS TACHYCARDIA RIGHT AXIS DEVIATION [QRS AXIS > 100] LOW QRS VOLTAGE IN PRECORDIAL LEADS [QRS DEFLECTION < 1.0 mV IN CHEST LEADS] NONSPECIFIC T-WAVE ABNORMALITY Compared to ECG 07/19/2025 18:12:42 Right-axis deviation now present Low QRS voltage now present T-wave abnormality now present Electronically Signed On 07-23-2025 15:34:15 CDT by Iva Jerez M.D. [email or web address]
--- NOTE | 2025-07-23 09:09 | PC.NURSE ---
Bedside procedure: Intubation: Patient intubated by Dr. Maier per Dr. Stockton's request. Patient given 20mg etomidate 0858 90mg of succ at 0858, Dr. Maier used size 8.0 et tube advanced to 23 at lip, color change verified at 0859 with bilateral breath sounds present. Chest xray verified placement see chart.
[2025-07-23] MEDS: meropenem 1,000 mg SDV 1000 MG IVP (09:35)
[2025-07-23] MEDS: fentaNYL 1,000 MCG/100 ML BAG 5 MCG IV (09:35)
[2025-07-23] MEDS: hydrocortisone 100 mg/2 mL SDV IVP (09:36)
[2025-07-23] MEDS: succinylcholine 20 mg/mL SDV 10mL 90 MG IVP (09:38)
[2025-07-23] MEDS: etomidate 2 mg/mL INJ SDV 10 mL 20 MG IVP (09:39)
[2025-07-23 09:48] LABS: ABG PCO2 37.2 mmHg (35-45); ABG PH Result 7.25 (7.35-7.45); Alveolar-Arterial Oxygen Gradi 58.1 mmHg (5-10); Arterial Blood Gas Hematocrit 39.3 % (37-47); Blood Gas Allen Test Pos; Blood Gas Operator Identificat CAK; Blood Gas Sample Site Radial, left; Blood Gas Sample Type Arterial; Blood Gas Tidal Volume 0.45; Carboxyhemoglobin 1.0 %THgb (0.4-20.1); Glucose Level-ABG 214.0 mg/dL (70-115); HCO3 ABG 16.2 mmol/L (22-26); Ionized Calcium Level - ABG 1.0 mmol/L (1.1-1.4); Methemoglobin 1.2 % (0.4-1.5); Oxygen Saturation ABG 94.2; PEEP 8.0 cmH20; PO2 ABG 76.9 mmHg (80.0-100.0); PO2 FiO2 Ratio Arterial Blood 96; Potassium Level - ABG 3.9 mmol/L (3.5-5.0); Sodium Level - ABG 138.0 mmol/L (131-143)
[2025-07-23 10:20] LABS: Hematocrit 38.4 % (36-47); Hemoglobin 12.50 g/dL (11.27-16.99); Mean Corpuscular HGB Conc 32.6 g/dL (30-55); Mean Corpuscular Hemoglobin 28.6 pg (27-33); Mean Corpuscular Volume 87.9 fl (85-98); Red Blood Count 4.37 10^6/uL (3.85-5.65); White Blood Count 28.98 10^3/uL (3.29-11.43)
[2025-07-23] MEDS: norepinephrine 4 MG/250 ML BAG 7.5 MG IV (10:37)
[2025-07-23 10:38] LABS: Alanine Aminotransferase 42 U/L (0-33); Albumin Level 2.8 g/dL (3.5-5.2); Alkaline Phosphatase 324 U/L (35-105); Aspartate Amino Transferase 38 U/L (0-32); Blood Urea Nitrogen 20 mg/dL (8-23); Calcium 7.2 mg/dL (8.5-10.5); Carbon Dioxide 17 mmol/L (22-29); Chloride 108 mmol/L (98-107); Creatinine Clr Calc Pharmacy 49.8666; Globulin 2.6 g/dL (1.3-4.6); Glucose 202 mg/dL (65-115); Osmolality Calculated 302 mOsm/kg (285-295); Sodium 142 mmol/L (136-145); Total Protein 5.4 g/dL (6.6-8.7)
[2025-07-23 10:46] LABS: Platelet Count 24 10^3/cmm (157-399); Slide Review Slide Review Perform
[2025-07-23 10:53] LABS: Total Cells Counted 100 (0-100)
[2025-07-23 10:54] LABS: Absolute Segmented Neutrophil 19.7 10/cmm (1.6-7.1); Atypical Lymphs 0.0 % (0-5); Band Neutrophils Absolute 3.5 10^3/cmm (0.0-1.2)
[2025-07-23 10:56] LABS: Anion Gap 20.8 (5-19); Potassium 3.8 mmol/L (3.5-5.1)
[2025-07-23 10:58] LABS: Ferritin > 1000 ng/mL (15-150)
--- NOTE | 2025-07-23 10:58 | PC.NURSE ---
Platelet critical at 24, Dr. Saeed ordered 1 platelet transfusion and dic panel
[2025-07-23 11:30] LABS: COMPLEMENT COMPONENT C3C 115 mg/dL (83-193); COMPLEMENT COMPONENT C4C 27 mg/dL (15-57)
[2025-07-23 12:10] LABS: ABG PCO2 38.6 mmHg (35-45); ABG PH Result 7.27 (7.35-7.45); Alveolar-Arterial Oxygen Gradi 60.4 mmHg (5-10); Arterial Blood Gas Hematocrit 40.3 % (37-47); Blood Gas Allen Test Pos; Blood Gas Operator Identificat CAK; Blood Gas Sample Site Radial, left; Blood Gas Sample Type Arterial; Blood Gas Tidal Volume 0.45; Carboxyhemoglobin 1.2 %THgb (0.4-20.1); Glucose Level-ABG 178.0 mg/dL (70-115); HCO3 ABG 17.7 mmol/L (22-26); Ionized Calcium Level - ABG 1.1 mmol/L (1.1-1.4); Methemoglobin 0.9 % (0.4-1.5); Oxygen Saturation ABG 87.3; PEEP 8.0 cmH20; PO2 ABG 57.9 mmHg (80.0-100.0); PO2 FiO2 Ratio Arterial Blood 72; Potassium Level - ABG 3.9 mmol/L (3.5-5.0); Sodium Level - ABG 140.0 mmol/L (131-143)
--- NOTE | 2025-07-23 12:26 | PM.DCS ---
Discharge Providers Date of Admission: 07/19/25 21:17 Date of Discharge: July 23, 2025 Attending Provider at Admission: Jessica Gandara MD Attending Provider at Discharge: Flor Saeed MD Primary Care Provider: LY Finley Diagnoses at Discharge Discharge Diagnosis 1. Thrombocytopenia: 2. UTI (urinary tract infection): 3. Fever: 4. Diffuse papular rash: Reason for Visit Reason for Visit: Fever N/V Hospital Course Hospital Course Lissa Warren is a 60 year old female with past medical history of diabetes came with fever and chills from last 1 to 2 days and later and was found to have skin redness from her torso with mild rash but no desquamation and no mouth ulcers. The patient did not take any antibiotics or any NSAIDs.. There was no history of URTI or UTI symptoms associated with it. No lower leg swellings no chest pain or chest pressure like symptoms. No history of allergies reported. No history of bug bite or mosquito bites. No history of recent travels or sick contact. The patient did not take her flu shot. No history of alcohol intake or any other drugs reported. Patient got sick within 1 or 2 days prior to being admitted on 07/20/2025 with high fever and rash to the trunk and the back. Father states he has no rash anywhere else except for the back the second day the rash continued into the face. As ceftriaxone was added to doxycycline patient improved dramatically into yesterday being the 20th. The change of antibiotics if she was told that allow at least 48 hours. After the initial improvement patient actually crashed today. Platelets had gone down from a 200s as a history but on admission came down to 120 and stayed 120 and as of today the platelets had dropped to 48 and then the repeat was 24. I had ordered at this time to platelets a pheresis to give patient is yet to receive that and is going to be following through with that. DIC panel showed elevated D-dimer of 20 PT was 20 repeat CTA had some pulmonary nodule initially CT of the chest showed no nodules and there were no PE. Patient this morning today had increasing work of breathing in the 40s heart rate was in the 140s patient had to be emergently intubated after giving a consent and also given a consent for a transfer. We do not have a fire prevention captain here and we do not have hematology because this could be something that I brought up what had been underlining all it could all just be tickborne illness such as Ehrlichia. I had ordered spinal tap for this morning yesterday and this morning I had to cancel it because the platelets were dropping so fast. Patient had been on ceftriaxone and doxycycline because of tick related borne illness as a presumptive diagnosis this morning the infectious disease had broaden of the spectrum by placing vancomycin and meropenem. Doxycycline still on on. Patient is on Versed and fentanyl for tube tolerance. Family had made to call [facility] and report was given to [facility] and [facility] had accepted this patient. The accepting physician is an senior operations manager Dr. Bibi SAUCEDO. The patient has been accepted to ICU at [facility] Generally patient was found in much increased work of breathing this morning with a high heart rate in the 140s and respiratory rate in the 40s patient had to be emergently intubated. Prior to that the family and the patient had giving consent to transfer to where they can better treat the patient because of the scope of practice. We do not have pulmonology and we do not have hematology in-house. Leading diagnosis is ehrlichiosis with sepsis and cannot rule out TTP because DIC panel were all elevated. LDH was 1900 INR 1.6 that had been normal. The are no pulmonology nor hematology. Very grateful that patient has been accepted to ICU at [facility] Physical Exam Narrative: Generally patient is in much respiratory distress and had to be intubated Patient has been transferred to [facility] at this time HEENT normocephalic atraumatic neck neck is supple cardiovascular heart rate is regular lungs are pretty much clear abdomen soft nontender nondistended unremarkable extremities are intact no edema has good pulses neurology has no focality lab studies lab studies reviewed and noted. Urinary Catheter Management: Soto Latex: Cath Placed During This Visit: yes Urinary Catheter Date of Insertion: 07/23/25 Urinary Catheter Time of Insertion: 06:10 Discharge Data Studies Completed and Pending Completed Studies During Hospitalization Category Date Time Status CT abdomen pelvis w con* [id number] Urgent Cat Scan 07/19/25 20:13 Completed CTA chest [CT angio chest PE protcl [id number]] Routine Cat Scan 07/22/25 10:19 Completed CXRP [XR chest 1V portable [id number]] Routine Exams 07/23/25 01:08 Completed CXRP [XR chest 1V portable [id number]] Stat Exams 07/23/25 08:56 Completed XR chest 1V portable [id number] Stat Exams 07/19/25 17:53 Completed XR chest 1V portable [id number] Stat Exams 07/21/25 18:14 Completed US echo complete [CV. echo complete* [id number]] Routine Ultrasound 07/20/25 03:42 Completed US pelvic complete* [id number] Routine Ultrasound 07/20/25 02:46 Completed Pending at discharge Category Date Time Status ABO/Rh Type Stat Lab 07/23/25 11:45 Ordered MELANIE Profile Rheumatology Routine Lab 07/21/25 14:10 Results Blastomyces AB Panel CF and ID Routine Lab 07/22/25 23:56 Received Blood Culture Stat Lab 07/19/25 18:05 Results Blood Culture Stat Lab 07/21/25 10:00 Results Blood Culture Stat Lab 07/23/25 09:56 Results CMV IGG&IGM Panel Routine Lab 07/21/25 14:10 Received Coccidioides AB CF Serum Routine Lab 07/22/25 23:56 Received Complete Crossmatch Stat Lab 07/23/25 11:45 Ordered Cyto Order Verification Routine Lab 07/22/25 12:12 Ordered EBV IGG & IGM Routine Lab 07/21/25 14:10 Received Ehrlichia Chaffeensis PCR Routine Lab 07/21/25 14:10 Received Fibrinogen Degradation Product Routine Lab 07/22/25 10:57 Received Francisella tularensis IgM/IgG Routine Lab 07/21/25 14:10 Received Histoplasma Antibody Immunodif Routine Lab 07/22/25 23:51 Received Histoplasma Quantitative AG Routine Lab 07/22/25 23:51 Ordered Miscellaneous Test Routine Lab 07/21/25 14:10 Received Platelets Leuko-Reduced Stat Lab 07/23/25 11:45 Ordered Pneumocystis Sputum [Pneumocystis jiroveci Qual PCR] Lab 07/23/25 09:20 Received Routine RPR with Reflex to Titer Routine Lab 07/21/25 14:10 Received SPINAL TAP [CSF Analysis + Cell Count] Urgent Lab 07/22/25 12:11 Uncollected Serotonin Release Assay Unfrac Routine Lab 07/23/25 08:07 Received Sputum Culture and Gram Stain Stat Lab 07/23/25 09:20 Received Tick Panel Routine Lab 07/20/25 11:42 [place] [id number] Routine Ultrasound 07/23/25 05:24 Taken Radiology Impressions Abdomen/Pelvis CT 07/19/25 20:13 IMPRESSION: 1. Mild mucosal thickening of the distal esophagus which is nonspecific but can be seen in esophagitis. 2. Moderate thickening of the gastric antrum which is nonspecific but can be seen in gastritis. Gastroenterology consultation should be considered. 3. Right adrenal lesion incompletely characterized on this examination measures 11 mm. To confirm adrenal adenoma, follow-up adrenal protocol CT or MRI is recommended. 4. Heterogeneously enhancing right adnexal cyst measures 2.0 cm series 5, image 78. Given the patient's age further evaluation with pelvic MRI or ultrasound could be considered. 5. Scattered bilateral pulmonary nodules measuring up to 5 mm in the left lower lobe series 5, image 5. Follow-up as per Fleischner criteria. Pelvis Ultrasound 07/20/25 02:46 IMPRESSION: Extremely limited examination. No gross abnormality observed. Chest CTA 07/22/25 10:19 IMPRESSION: 1. No evidence of pulmonary embolus 2. Small bilateral pleural effusions 3. Numerous subcentimeter noncalcified pulmonary nodules the largest measuring up to 8 mm. These are nonspecific. Metastatic disease not entirely excluded. 4. Bronchovascular thickening RIGHT hilum with RIGHT hilar masslike lymphadenopathy measuring 1.8 x 2.1 cm. Neoplasm not excluded. Recommend further evaluation with bronchoscopy and/or PET/CT. Chest X-Ray 07/23/25 08:56 IMPRESSION: 1. Endotracheal tube tip 4.3 cm from the tenzin. 2. Slightly more prominent bilateral interstitial opacities compared with earlier today. Laboratory Results WBC 28.98 10^3/uL (3.29-11.43) H 07/23/25 09:48 Corrected WBC 27.9 10^3/cmm (4.8-10.8) H 07/23/25 09:48 RBC 4.37 10^6/uL (3.85-5.65) 07/23/25 09:48 Hgb 12.50 g/dL (11.27-16.99) 07/23/25 09:48 Hct 38.4 % (36-47) 07/23/25 09:48 MCV 87.9 fl (85-98) 07/23/25 09:48 MCH 28.6 pg (27-33) 07/23/25 09:48 MCHC 32.6 g/dL (30-55) 07/23/25 09:48 RDW 14.4 % (12.1-15.1) 07/23/25 09:48 Plt Count 24 10^3/cmm (157-399) L* D 07/23/25 09:48 MPV Not Reportable 07/23/25 09:48 Neut % (Auto) 77.1 % 07/22/25 03:00 Lymph % (Auto) Not Reportable 07/23/25 09:48 Bosque % (Auto) Not Reportable 07/23/25 09:48 Eos % (Auto) 5.2 % 07/22/25 03:00 Baso % (Auto) 0.4 % 07/22/25 03:00 Neut # (Auto) 21.33 10^3/uL (1.8-7.7) H 07/22/25 03:00 Lymph # (Auto) Not Reportable 07/23/25 09:48 Bosque # (Auto) Not Reportable 07/23/25 09:48 Eos # (Auto) 1.5 10^3/uL (0.0-0.8) H 07/22/25 03:00 Baso # (Auto) 0.1 10^3/uL (0.0-0.1) 07/22/25 03:00 Nucleated RBC % (auto) 0.4 % 07/22/25 03:00 Total Counted 100 (0-100) 07/23/25 09:48 Atypical Lymphs % 0.0 % (0-5) 07/23/25 09:48 Absolute Neutrophils 23.2 10^3/cmm (1.4-6.5) H 07/23/25 09:48 Segmented Neutrophils 68 % 07/23/25 09:48 Band Neutrophils 12.0 % 07/23/25 09:48 Absolute Lymphocytes 2.9 10^3/cmm (1.2-3.4) 07/23/25 09:48 Lymphocytes (Manual) 10 % 07/23/25 09:48 Monocytes (Manual) 1.0 % 07/23/25 09:48 Absolute Monocytes 0.3 10^3/cmm (0.1-0.6) 07/23/25 09:48 Eosinophils (Manual) 2 % 07/23/25 09:48 Absolute Eosinophils 0.6 10^3/cmm (0.0-0.7) 07/23/25 09:48 Basophils (Manual) 0.0 % 07/23/25 09:48 Absolute Basophils 0.0 10^3/cmm (0.0-0.2) 07/23/25 09:48 Metamyelocytes 2.0 % 07/23/25 09:48 Myelocytes 1.0 % 07/23/25 09:48 Promyelocytes 3.0 % 07/23/25 03:19 Nucleated RBCs 4.0 /100WBC (0-1) H 07/23/25 09:48 Nucleated RBCs # 0.1 /100WBC 07/22/25 03:00 Toxic Granulation 1+ H 07/23/25 03:19 Toxic Vacuolation 1+ H 07/23/25 03:19 Platelet Estimate Decreased (Normal) L 07/23/25 09:48 Giant Platelets Trace 07/20/25 03:35 Peripher Smr Path Cons Sent for review 07/23/25 03:19 Haptoglobin 171.0 mg/L (30-200) 07/23/25 03:19 PT 20.00 SECONDS (12.1-14.9) H 07/22/25 10:42 INR 1.60 (0.8-1.2) H 07/22/25 10:42 APTT 33.8 SECONDS (23.9-36.7) 07/22/25 10:42 Fibrinogen 229 mg/dL (174-498) 07/22/25 10:42 D-Dimer >= 20.00 ug/mLFEU (0-0.59) H 07/22/25 10:42 Specimen Type Arterial 07/23/25 11:58 Sample Site Radial, left 07/23/25 11:58 ABG pH 7.27 (7.35-7.45) L 07/23/25 11:58 ABG pCO2 38.6 mmHg (35-45) 07/23/25 11:58 ABG pO2 57.9 mmHg (80.0-100.0) L 07/23/25 11:58 ABG PO2/FiO2 Ratio 72 07/23/25 11:58 ABG HCO3 17.7 mmol/L (22-26) L 07/23/25 11:58 ABG O2 Saturation 87.3 07/23/25 11:58 ABG Base Excess -8.6 mmol/L (-2.0-2.0) L 07/23/25 11:58 Endy Test Pos 07/23/25 11:58 A-a O2 Gradient 60.4 mmHg (5-10) H 07/23/25 11:58 Hematocrit 40.3 % (37-47) 07/23/25 11:58 Hgb O2 Saturation 85.5 % (95-100) L 07/23/25 11:58 Carboxyhemoglobin 1.2 %THgb (0.4-20.1) 07/23/25 11:58 Methemoglobin 0.9 % (0.4-1.5) 07/23/25 11:58 Total Hemoglobin 13.2 g/dL (12-16) 07/23/25 11:58 Sodium 140.0 mmol/L (131-143) 07/23/25 11:58 Potassium 3.9 mmol/L (3.5-5.0) 07/23/25 11:58 Glucose 178.0 mg/dL (70-115) H 07/23/25 11:58 Ionized Calcium 1.1 mmol/L (1.1-1.4) 07/23/25 11:58 O2 Delivery Device Vent 07/23/25 11:58 FiO2 80.0 % 07/23/25 11:58 Tidal Volume 0.45 07/23/25 11:58 PEEP 8.0 cmH20 07/23/25 11:58 Supervisor Welding Equipment Repairer ID Cak 07/23/25 11:58 Sodium 142 mmol/L (136-145) 07/23/25 09:48 Potassium 3.8 mmol/L (3.5-5.1) 07/23/25 09:48 Chloride 108 mmol/L (98-107) H 07/23/25 09:48 Carbon Dioxide 17 mmol/L (22-29) L 07/23/25 09:48 Anion Gap 20.8 (5-19) H 07/23/25 09:48 BUN 20 mg/dL (8-23) 07/23/25 09:48 Creatinine 1.3 mg/dL (0.5-0.9) H 07/23/25 09:48 GFR Calculation 41.6 mL/min (90-130) L 07/23/25 09:48 Glucose 202 mg/dL (65-115) H 07/23/25 09:48 POC Glucose 164 mg/dL (70-110) H 07/23/25 11:05 Calculated Osmolality 302 mOsm/kg (285-295) H 07/23/25 09:48 Lactic Acid 1.9 mmol/L (0.5-2.2) 07/19/25 22:34 Lactate 1.6 mmol/L (0.5-2.2) 07/19/25 19:33 Calcium 7.2 mg/dL (8.5-10.5) L 07/23/25 09:48 Ferritin > 1000 ng/mL (15-150) H 07/23/25 09:48 Total Bilirubin 0.8 mg/dL (0.15-1.2) 07/23/25 09:48 AST 38 U/L (0-32) H 07/23/25 09:48 ALT 42 U/L (0-33) H 07/23/25 09:48 Alkaline Phosphatase 324 U/L (35-105) H 07/23/25 09:48 Lactate Dehydrogenase 1971 U/L (135-214) H 07/23/25 03:19 C-Reactive Protein 187.0 mg/L (0.0-4.9) H 07/19/25 18:02 Total Protein 5.4 g/dL (6.6-8.7) L 07/23/25 09:48 Albumin 2.8 g/dL (3.5-5.2) L 07/23/25 09:48 Globulin 2.6 g/dL (1.3-4.6) 07/23/25 09:48 Procalcitonin 7.90 ng/mL (0-0.5) H 07/19/25 18:02 Urine Color Dark yellow (Yellow) A 07/19/25 18:58 Urine Appearance Turbid (CLEAR) A 07/19/25 18:58 Urine pH 5.5 (5-7) 07/19/25 18:58 Ur Specific [place] 1.034 (1.005-1.030) H 07/19/25 18:58 Urine Protein 2+ (Negative) A 07/19/25 18:58 Urine Glucose (UA) Negative (Normal) 07/19/25 18:58 Urine Ketones 4+ (Negative) 07/19/25 18:58 Urine Blood 1+ (Negative) A 07/19/25 18:58 Urine Nitrate Negative (Negative) 07/19/25 18:58 Urine Bilirubin 1+ (Negative) H 07/19/25 18:58 Urine Urobilinogen 1.0 mg/dL (Negative) 07/19/25 18:58 Ur Leukocyte Esterase 3+ (Negative) A 07/19/25 18:58 Urine RBC 11-20 /hpf (0-2) H 07/19/25 18:58 Urine WBC >100 /hpf (0-5) H 07/19/25 18:58 Ur Squamous Epith Cells 6-10 /hpf (0-5) 07/19/25 18:58 Amorphous Sediment Not Reportable 07/19/25 18:58 Urine Bacteria 3+ /hpf (NONE) H 07/19/25 18:58 Hyaline Casts 36.83 /lpf 07/19/25 18:58 Urine Mucus 2+ /hpf 07/19/25 18:58 Nasal MRSA (PCR) Not detected (Not Detecte) 07/20/25 14:30 Serum Ketones Negative (Negative) 07/19/25 18:02 Complement C3c 115 mg/dL (83-193) 07/21/25 14:10 Complement C4c 27 mg/dL (15-57) 07/21/25 14:10 Adenovirus (PCR) Not detected (NOT DETECT) 07/21/25 11:45 Lyme Ab (Western Blot) <0.90 index 07/20/25 11:42 C. pneumoniae DNA (PCR) Not detected (NOT DETECT) 07/21/25 11:45 C. difficile (PCR) Negative (Negative) 07/23/25 03:07 Coronavirus 229E (PCR) Not detected (NOT DETECT) 07/21/25 11:45 Hepatitis A IgM Ab Non-reactive (Nonreactive) 07/22/25 03:00 Hep Bs Antigen Non-reactive (Nonreactive) 07/22/25 03:00 Hep Bs Antibody 247.6 (11.5-1000) 07/22/25 03:00 Hep B Core Total Ab Non-reactive (Nonreactive) 07/22/25 03:00 Hepatitis C Antibody Non-reactive (Nonreactive) 07/22/25 03:00 Monoscreen Negative (Negative) 07/21/25 04:29 HIV 1&2 Ab & HIV 1 Ag Non-reactive (Non-Reactiv) 07/22/25 03:00 HIV 1&2 Antibody Non-reactive (Non-Reactiv) 07/22/25 03:00 Human Metapneumovir PCR Not detected (NOT DETECT) 07/21/25 11:45 Influenza A (H1) PCR Not detected (NOT DETECT) 07/21/25 11:45 Influenza A (PCR) Negative (Negative) 07/23/25 06:28 Influ A (H1/09) PCR Not detected (NOT DETECT) 07/21/25 11:45 Influenza A (H3) PCR Not detected (NOT DETECT) 07/21/25 11:45 Influenza Type A (PCR) Not detected (NOT DETECT) 07/21/25 11:45 Influenza Type B (PCR) Negative (Negative) 07/23/25 06:28 M. pneumoniae (PCR) Not detected (NOT DETECT) 07/21/25 11:45 Parainfluenza 1 (PCR) Not detected (NOT DETECT) 07/21/25 11:45 Parainfluenza 2 (PCR) Not detected (NOT DETECT) 07/21/25 11:45 Parainfluenza 3 (PCR) Not detected (NOT DETECT) 07/21/25 11:45 Parainfluenza 4 (PCR) Not detected (NOT DETECT) 07/21/25 11:45 RSV (PCR) Negative (Negative) 07/23/25 06:28 RSV Type A (PCR) Not detected (NOT DETECT) 07/21/25 11:45 RSV Type B (PCR) Not detected (NOT DETECT) 07/21/25 11:45 Entero/Rhino (PCR) Not detected (NOT DETECT) 07/21/25 11:45 SARS-CoV-2 (PCR) Negative (Negative) 07/23/25 06:28 Vitals Last Vital Signs Temp 97.8 F 07/23/25 07:00 Pulse 130 H 07/23/25 10:00 Resp 24 H 07/23/25 11:26 BP 122/75 07/23/25 10:00 Pulse Ox 93 07/23/25 11:26 O2 Del Method BiPAP 07/23/25 08:04 O2 Flow Rate 2 07/22/25 20:25 FiO2 80 07/23/25 11:26 Discharge Plan Discharge Patient Disposition: Xfer Short-Term Hosp Condition: Stable Prescriptions: Held magnesium 250 mg tablet 250 mg PO QPM Hold Instructions: Intubated metformin 500 mg tablet extended release 24 hr 500 mg PO DAILY Qty: 90 1RF Hold Instructions: Intubated Mounjaro 5 mg/0.5 mL pen injector 5 mg SUBCUT .weekly Qty: 2 5RF Hold Instructions: Intubated Rx Instructions: Tuesday (DME) nebulizers Misc See Rx Instructions .ROUTE .MEDSUPPLY Qty: 1 0RF Hold Instructions: Intubated Rx Instructions: use every 4 hours as needed tizanidine [Zanaflex] 4 mg tablet 2 mg PO BID PRN (Reason: muscle spasticity) Qty: 90 0RF Hold Instructions: Intubated valerian root 500 mg Capsule 500 mg PO QPM Hold Instructions: Intubated Plumbing Mechanic OK for DC: Infectious Disease and Hospitalist Discharge Order = DC NOW: Discharge Order (Routine); Ordered 07/23/25 Ordered By: Flor Saeed Referrals: Chikis Flores, CONSTRUCTION EQUIPMENT OVERHAULER-C [Primary Care Provider, Family Practice] Discharge Attestations Time Spent in Discharge Care*: greater than 30 min Quality Metrics Clinical Quality Measures [ No reported AMI, CVA or VTE this stay] Coding Level of Care Code 60605 Diagnoses Thrombocytopenia D69.6 UTI (urinary tract infection) N39.0 Hematuria presence: without hematuria Urinary tract infection type: site unspecified Fever R50.9 Diffuse papular rash R21 Comment Working diagnosis is ehrlichiosis Rule out underlining TTP
--- NOTE | 2025-07-23 13:15 | P.CONIM_ITS ---
Providers/Reason For Consult 2 Consulting Physician/Specialty*: Dr Mily Pierre Reason for Consult*: Septic shock ventilator management Attending Physician: Flor Saeed MD Primary Care Provider: LY Finley History of Present Illness History of Present Illness Lissa Warren is a 60 year old female With past medical history of diabetes comes in remission with fever chills and rash on 07/20/2025. She was diagnosed with UTI sepsis as well as LATRELL. Zosyn and clindamycin started after adequate fluid resuscitation. Course complicated by thrombocytopenia as well as ongoing fever. Due to suspicion of tickborne illness infectious diseases consulted, enteric panel ordered pending tularemia Ehrlichia and Anaplasma DNA checked. DC clindamycin due to less likely being toxic shock syndrome. Instead started on ceftriaxone and doxycycline on 07/21/2025 O2 requirements considerably went up. Steroids started as well. Due to decompensation had to be urgently intubated. Platelets down to 48,000 today LDH more than 1900. CT chest did not show any PEs but did note innumerable subcentimeter noncalcified pulmonary nodules suspicious of metastatic disease with masslike lymphadenopathy noted as well. I reviewed the CT scan personally myself. Due to suspicion for TTP versus HUS it is recommended that she be transferred to a higher level of care. She is pending transfer to [facility] at this time Currently she is on the vent for 70 mL tidal volume, 70% FiO2 and 10 of PEEP. Also on 15 of levo drip MAP of 78. Versed and fentanyl drips for sedation. Rash is slightly improved. Review of systems-unable to obtain patient is on the vent per RN General: Intubated sedated Neck: supple Pulmonary: Crackles heard bilaterally Cardiovascular: rrr, nl s1s2, no mrg Abdomen: soft, nt, nd, no r/g, Extremities: pulses +, no edema Skin: Maculopapular rash noted but improving Neurologic: Cannot be fully assessed Agree with above exam Medications/Allergies Home Medications ?Medication ?Instructions ?Recorded ?Confirmed ?Last Taken ?Type magnesium 250 mg tablet 250 mg PO QPM 03/17/2207/2007/18/25 History nebulizers #1 ea 10/15/24 07/20/25 Unkn own Rx metformin 500 mg tablet,extended 500 mg PO DAILY #90 t abs 02/14/25 07/20/25 07/18/25 Rx release 24 hr tirzepatide 5 mg/0.5 mL 5 mg (0.5 mL) SUBCUT .weekly #2 mL 02/14/25 07/20/25 07/12/25 Rx subcutaneous pen injector (Ayden) tizanidine 4 mg tablet (Zanaflex) 2 mg (1/2 x 4 mg) PO BID PRN 05/14/25 07/20/25 Unknown Rx muscle spasticity #90 tabs valerian root 500 mg capsule 500 mg PO QPM 07/20/2507/18/25 History Allergies Allergy/AdvReac Type Severity Reaction Status Date / Time No Known Allergies Allergy Verified 07/10/25 15:41 Current Medications Generic Name Dose Route Start Last Admin Trade Name Freq PRN Reason Stop Dose Admin Acetaminophen 650 mg 07/20/25 14:55 07/23/25 05:40 Acetaminophen 325 Mg Tablet PO 650 mg Q4H PRN Administration MILD PAIN OR INCREASE TEMP Hydrocodone Bitart/Acetaminophen 1 tab 07/19/25 21:17 07/21/25 20:07 Hydrocodone-Acetaminophen 5-325 Mg Tablet PO 1 tab Q4H PRN Administration MODERATE PAIN Albuterol/Ipratropium 3 ml 07/21/25 18:21 07/23/25 08:00 Ipratropium-Albuterol 3 Ml Neb INHALATION 3 ml Q4H.RESPIRATORY PRN Administration SHORTNESS OF BREATH Famotidine 20 mg 07/20/25 05:00 07/23/25 04:29 Famotidine 20 Mg/2 Ml Inj IVP 20 mg DAILY CARLOS Administration Heparin Sodium (Porcine) 5,000 unit 07/19/25 21:30 07/22/25 20:50 Heparin 5,000 Unit/Ml Inj 1 Ml SUBCUT 5,000 unit On Hold: 07/23/25 05:18 Q12H CARLOS Administration Hydrocortisone Sodium Succinate 100 mg 07/23/25 08:45 07/23/25 09:36 Hydrocortisone 100 Mg/2 Ml Sdv IVP 100 mg Q12H CARLOS Administration Sodium Chloride 1,000 mls @ 75 mls/hr 07/21/25 10:15 07/22/25 19:40 Sodium Chloride 0.9% IV 75 mls/hr On Hold: 07/23/25 01:07 .[id number] CARLOS Administration Doxycycline Hyclate 100 mg/ 100 mls @ 100 mls/hr 07/21/25 11:30 07/23/25 11:36 Sodium Chloride IV 100 mls/hr Q12H CARLOS Administration Protocol Fentanyl 1,000 mcg in 100 mls @ 0 mls/hr 07/23/25 09:15 07/23/25 09:40 Sublimaze IV 75 mcg/hr .Q0M CARLOS 7.5 mls/hr Protocol Titration Per Protocol Midazolam HCl 100 mg in 100 mls @ 0 mls/hr 07/23/25 09:45 07/23/25 09:30 Versed IV 3 mg/hr .Q0M CARLOS 3 mls/hr Protocol Titration Per Protocol Norepinephrine Bitartrate 4 mg in 250 mls @ 0 mls/hr 07/23/25 10:15 07/23/25 11:02 Levophed IV 8 mcg/min .Q0M CARLOS 30 mls/hr Protocol Titration Per Protocol Insulin Human Lispro 0 unit 07/20/25 08:00 07/23/25 12:13 Insulin Lispro 100 Unit/1 Ml SUBCUT 2 unit WM&BEDTIME CARLOS Administration Protocol Ketorolac Tromethamine 15 mg 07/22/25 09:15 07/22/25 09:21 Ketorolac 30 Mg/Ml Inj IVP 07/27/25 09:14 15 mg Q6H PRN Administration MODERATE PAIN Meropenem 1,000 mg 07/23/25 08:00 07/23/25 09:35 Meropenem 1,000 Mg Sdv IVP 1,000 mg Q8H CARLOS Administration Protocol PFSH Acute 2 PFSH: Medical History (Updated 07/23/25 @ 13:28 by Mily Pierre MD) Septic shock Type 2 diabetes mellitus with hyperglycemia, without long-term current use of insulin BMI 29.0-29.9,adult Surgical History No pertinent past surgical history Family History Mother Diabetes Hypertension Stroke Sister Diabetes Brother Diabetes Father Dementia Hypertension Denies family history of Cancer Social History Smoking and tobacco/nicotine status: never used tobacco/nicotine Second hand smoke exposure: No Alcohol intake: never Substance/Drug Use: never Adopted: No Caregiver/support person: No Lives independently: Yes Household members: family Housing: House Marital status: Single Number of children: 0 Number of grandchildren: 0 service: No Current occupational status: employed Current occupation: [employer] Current occupational exposures/hazards: No Pets and animals: Yes Pets & animals: farm animals Sexually active: No Do you think of yourself as: Straight/Heterosexual Current gender identity: Female Vitals/I&O/Wt Last Vital Signs Temp 97.8 F 07/23/25 07:00 Pulse 144 H 07/23/25 12:00 Resp 24 H 07/23/25 11:26 BP 92/63 07/23/25 12:00 Pulse Ox 93 07/23/25 12:00 O2 Del Method BiPAP 07/23/25 08:04 O2 Flow Rate 2 07/22/25 20:25 FiO2 80 07/23/25 11:26 07/22/25 07/23/25 07/23/25 22:59 06:59 14:59 Intake Total 540 / 2190 352.683 / 2542.683 4.292 / 4.292 Output Total 350 / 350 Balance 540 / 2190 2.683 / 2192.683 4.292 / 4.292 Weight last 48 hrs Weight 187 lb Physical Exam 2 Urinary Catheter Management: Soto Latex: Cath Placed During This Visit: yes Urinary Catheter Date of Insertion: 07/23/25 Urinary Catheter Time of Insertion: 06:10 Data 07/23/25 09:48 07/23/25 09:48 Micro: Microbiology 07/23/25 09:56 Blood Culture - Preliminary Blood SPECIMEN COLLECTED 07/23/25 09:48 Blood Culture - Preliminary Blood SPECIMEN COLLECTED 07/21/25 10:00 Blood Culture - Preliminary Blood NEGATIVE TO DATE 07/21/25 10:02 Blood Culture - Preliminary Blood NEGATIVE TO DATE A&P Assessment and plan 1. Thrombocytopenia: 2. LATRELL (acute kidney injury): 3. Septic shock: Plan: # Septic shock Patient meets criteria for septic shock due to ARDS as well as hematologic, compromise with thrombocytopenia and leukocytosis with fever Agree with ceftriaxone and doxycycline due to suspicion for tickborne illness Cultures pending blood sputum as well as tickborne panel-no growth till date - Continue hydrocortisone 100 every 12 Continue meropenem 1000 mg every 8 - Echocardiogram pending # Severe thrombocytopenia-concerning for TTP versus HUS -As above # Probable tickborne illness As above # Lung mass with mediastinal lymphadenopathy concerning for bronchogenic cancer -Most likely will need biopsy for this with a bronchoscopy but too unstable at this time to consider. As well as due to thrombocytopenia. I am also suspicious that this could be either inflammatory condition versus infectious cannot rule out immunological diseases. Will get a connective tissue order panel. # UTI As above defer to ID # Metabolic acidosis acute - Will need delivery 2 A of bicarb to stabilize the transfer. High risk for decompensation. # Diffuse pneumonitis-unclear etiology infectious versus inflammatory. Reviewed findings on CT scan personally myself. Suspicious for either infectious or inflammatory process Continue ventilator support and wean as tolerated. Reviewing ABG still continues to show hypoxemia severe. I discussed with RT will increase PEEP to 12. # Right adrenal lesion -As above # Multiple lung nodules -As above # Diffuse rash -Suspicious for tickborne illness versus inflammatory condition The high probability of a clinically significant, sudden or life threatening deterioration of the patient's [Respiratory, cardiac and renal] system(s) required my full and direct attention, intervention and personal management. The critical care time is as shown. This time is in addition to time spent performing any reported procedures but includes the following: [x] Data and vital sign review and interpretation [x] Patient assessment, examination and intervention [x] Documentation [x] Medication orders and management Critical Care Time (min): 45 Telemedicine Consent Patient seen today via Telemedicine by agreement and consent of patient.? Telemedicine technology used during the visit includes audio and, as available, review of images.? The patient encounter is appropriate and reasonable under the circumstances given the patient?s particular presentation at this time.? The patient has been advised of the potential risks and limitations of this mode of treatment (including but not limited to the absence of in-person examination) and has agreed to be treated in a remote fashion in spite of them.? Any, and all, of the patient?s/patient?s family?s questions on this issue have been answered and I have made no promises or guarantees to the patient. The patient has also been advised to contact this office for worsening conditions or problems, and seek emergency medical treatment and/or call 911 if the patient deems either necessary PDMP PDMP Reviewed: Not Reviewed Coding Level of Care Code Critical Care >/= 30 minutes Diagnoses Thrombocytopenia D69.6 LATRELL (acute kidney injury) N17.9 Septic shock A41.9; R65.21
[2025-07-23 13:18] LABS: COMPLEMENT, TOTAL (CH50) 46 U/mL (31-60)
--- NOTE | 2025-07-23 13:18 | PHA.VACGOAL ---
Vancomycin Goal - Goal Vancomycin Goal:: 15-20 mg/L Vancomycin Indication:: Pneumonia - Therapy Day of therpy:: Day []of [] . Actual body weight (kg): 187 lb - Data Labs: WBC 28.98 10^3/uL (3.29-11.43) H 07/23/25 09:48 Corrected WBC 27.9 10^3/cmm (4.8-10.8) H 07/23/25 09:48 RBC 4.37 10^6/uL (3.85-5.65) 07/23/25 09:48 Hgb 12.50 g/dL (11.27-16.99) 07/23/25 09:48 Hct 38.4 % (36-47) 07/23/25 09:48 MCV 87.9 fl (85-98) 07/23/25 09:48 MCH 28.6 pg (27-33) 07/23/25 09:48 MCHC 32.6 g/dL (30-55) 07/23/25 09:48 RDW 14.4 % (12.1-15.1) 07/23/25 09:48 Sodium 142 mmol/L (136-145) 07/23/25 09:48 Potassium 3.8 mmol/L (3.5-5.1) 07/23/25 09:48 Chloride 108 mmol/L (98-107) H 07/23/25 09:48 Carbon Dioxide 17 mmol/L (22-29) L 07/23/25 09:48 Anion Gap 20.8 (5-19) H 07/23/25 09:48 BUN 20 mg/dL (8-23) 07/23/25 09:48 Creatinine 1.3 mg/dL (0.5-0.9) H 07/23/25 09:48 GFR Calculation 41.6 mL/min (90-130) L 07/23/25 09:48 Treatment plan:: new consult Regimen:: 1000 MG Q12H
--- NOTE | 2025-07-23 13:23 | PM.CCN ---
Critical Care Event Note Consulted by hospitalist service for emergent intubation patient with acute respiratory distress that is worsening with significant increased work of breathing. Patient seen at the bedside along with ,. Patient is tachypneic on BiPAP. Tachycardic. Intubated without difficulty RSI with 20 of etomidate and [address] Dunbar has ordered fentanyl and Versed for sedation and she will continue care for the patient in the ICU. Critical Care Time Code activated: No Critical Care Time (min): 0 Procedures Intubation Time out performed: Yes Sedative: etomidate Mg given: 20 Paralytic: succinylcholine Mg given: 90 Laryngoscope: fiber optic video scope ET tube size: 8 ET tube uncuffed: No Tube secured depth (cm): 23 Tube secured location: teeth Tube placement confirmation: visualized tube passing through cords, equal breath sounds bilaterally, no breath sounds over epigastrium, confirmation by capnometry and color change noted Patient tolerated procedure: well Intubation complications: none Additional comments: Chest x-ray confirms placement Coding Level of Care Code Acute Code for Chg Fwd
--- NOTE | 2025-07-23 14:19 | PC.NURSE ---
Report called to nola PATEL at [facility] who informed this nurse room was changed to 6105, family mad aware. patient out of facility at this time with air evac
[2025-07-23 16:53] LABS: CENTROMERE B ANTIBODY <1.0 NEG AI (<1.0 NEG); JO-1 ANTIBODY <1.0 NEG AI (<1.0 NEG); RNP ANTIBODY <1.0 NEG AI (<1.0 NEG); SCL-70 ANTIBODY <1.0 NEG AI (<1.0 NEG); SS-B <1.0 NEG AI (<1.0 NEG)
[2025-07-24 15:19] LABS: THYROID PEROXIDASE ANTIBODIES <1 IU/mL (<9)
[2025-07-25 22:16] LABS: F.tularensis IgG AB Serum Negative (Negative); F.tularensis IgM AB Serum Negative (Negative)
[2025-07-26 08:19] LABS: EBV IGG TEST 186.00 U/mL; EBV IGM TEST <36.00 U/mL
[2025-07-26 10:10] LABS: RPR w(Moniotor) w/REFL Titer NON-REACTIVE (NON-REACTIVE)
[2025-07-26 13:35] LABS: ANCA Screen NEGATIVE (NEGATIVE)
[2025-07-27 13:18] LABS: DNA AB (DS) CRITHIDIA,IFA NEGATIVE (NEGATIVE)
[2025-07-28 21:45] LABS: Histoplasma capsulatum H Ab NEGATIVE; Histoplasma capsulatum M Ab NEGATIVE
[2025-07-29 14:54] LABS: P. Jirovecii DNA QL PCR Not Detected (Not Detected); P. Jirovecii DNA QL PCR Source Sputum
[2025-07-29 20:20] LABS: Blastomyces AB Immunodiffusion Negative (Negative); Blastomyces Dermatitidis AB <1:8 titer (<1:8)
[2025-07-30 18:28] LABS: RMSF IGG NOT DETECTED; RMSF IGM NOT DETECTED
[2025-08-04 18:40] LABS: Coccidioides AB CF Serum <1:2
== END 2025-07-23 14:22 | disposition short-term general hospital (02) | DRG 871 ==
LOC: ER 20:51 → ICU 21:33
PROVIDERS: Internal Medicine; Student in an Organized Health Care Education/Training Program; Admitting Provider Student in an Organized Health Care Education/Training Program; Emergency Provider Physician Assistant; PCP Nurse Practitioner; Visit Provider Internal Medicine
DX: A41.9 Sepsis, unspecified organism (principal); M31.19 Other thrombotic microangiopathy; R65.21 Severe sepsis with septic shock; N39.0 Urinary tract infection, site not specified; N17.9 Acute kidney failure, unspecified; A77.40 Ehrlichiosis, unspecified; E87.21 Acute metabolic acidosis; R65.20 Severe sepsis without septic shock; R21 Rash and other nonspecific skin eruption; Z79.82 Long term (current) use of aspirin; Z79.84 Long term (current) use of oral hypoglycemic drugs; Z83.3 Family history of diabetes mellitus; Z82.3 Family history of stroke; Z82.49 Family history of ischemic heart disease and other diseases of the circulatory system; Z11.52 Encounter for screening for COVID-19; E11.65 Type 2 diabetes mellitus with hyperglycemia; D64.9 Anemia, unspecified; R59.0 Localized enlarged lymph nodes; R09.02 Hypoxemia; J98.4 Other disorders of lung; R91.8 Other nonspecific abnormal finding of lung field; R06.09 Other forms of dyspnea
CPT/HCPCS: 36415; 36416; 36600; 51702; 71045; 71275; 74177; 76856; 80051; 80053; 80503; 81001; 82009; 82330; 82728; 82805; 82962; 83010; 83605; 83615; 84145; 85007; 85025; 85027; 85362; 85378; 85384; 85610; 85651; 85730; 86022; 86036; 86140; 86160; 86162; 86235; 86255; 86308; 86376; 86431; 86592; 86612; 86618; 86635; 86664; 86665; 86666; 86668; 86698; 86705; 86706; 86709; 86757; 86803; 86900; 87040; 87070; 87077; 87086; 87186; 87205; 87340; 87486; 87493; 87581; 87633; 87637; 87798; 87806; 93005; 93306; 93970; 94002; 94640; 94660; 94799; 96365; 96367; 96372; 99285; J0330; J0696; J1644; J1720; J1815; J1885; J1938; J2185; J2250; J2270; J2543; J3010; J3372; J3373; J3490; J7030; J7050; J9999